=== PATIENT | male | born 1960 | race Two or more races ===

== ENCOUNTER 2024-11-10 04:44 | Inpatient (IN) | payer MEDICAID, SELFPAY ==
[2024-11-10] VITALS (27 sets, daily range): BP systolic 117–202; BP diastolic 17–149; PULSE 83–138; RESP 14–93; TEMP 36.1–36.9; O2SAT 83–99; BMI 20.9; BMI 20.7
--- NOTE | 2024-11-10 04:47 | EKG_ITS ---
[facility] Test Date: 2024-11-10 Pat Name: NITA LEONARD Department: Room: - Gender: Male Dicer Operator: : [id number] Requested By: Krystal Marion Order Number: [id number] Reading MD: Krystal Marion Measurements Intervals [place] Rate: 114 P: 60 [place]: 135 QRS: -53 QRSD: 128 T: 60 QT: 340 QTc: 469 Interpretive Statements SINUS TACHYCARDIA LEFT ATRIAL ENLARGEMENT [-0.15mV P WAVE IN V1/V2] RIGHT BUNDLE BRANCH BLOCK [120+ ms QRS DURATION, UPRIGHT V1, 40+ ms S IN I/aVL/V4/V5/V6] LEFT ANTERIOR FASCICULAR BLOCK [QRS AXIS <= -45, QR IN I, RS IN II] ANTEROSEPTAL MYOCARDIAL INFARCTION , OF INDETERMINATE AGE [40+ ms Q WAVE IN V1-V4] Compared to ECG 11/02/2021 17:13:16 Atrial abnormality now present Left anterior fascicular block now present Myocardial infarct finding now present Sinus rhythm no longer present Right-axis deviation no longer present /store/S0/[id number].pdf
--- NOTE | 2024-11-10 04:48 | EDNOTE_ITS ---
ED SOB =RME/HPI General Chief Complaint: Shortness of Breath/Dyspnea Stated Complaint: RESPIRATORY DISTRESS Time Seen by Provider: 11/10/24 04:46 Arrival date/time: 11/10/24 04:44 RME / HPI RME / HPI Narrative: Dr. Hernandez's Main ED Evaluation: 64yo male with a history of methamphetamine and alcohol use BIBA from home presents to the ED for a chief complaint of shortness of breath. Patient was seen by me immediately upon arrival. Per EMS, they found the patient walking outside of his apartment and appeared to be short of breath. They administered magnesium and 2 albuterol breathing treatments en route without much improvement. Full ROS is unobtainable due to the patient being short of breath and not answering any questions. Related Data Previous Rx's ?Medication ?Instructions ?Recorded pantoprazole 40 mg tablet,delayed 40 mg PO QDAY #30 tabs 10/22/19 release famotidine 20 mg tablet (Acid 20 mg PO QDAY #20 tabs 11/02/21 Controller) famotidine 20 mg tablet 20 mg PO QDAY #14 tabs 08/04/22 Allergies Allergy/AdvReac Type Severity Reaction Status Date / Time No Known Allergies Allergy Verified 08/04/22 15:11 Review of Systems Review of Systems ROS Unobtainable: other (unobtainable due to the patient being anxious & not answering any questions) Past Medical History Past Medical History NEUROLOGIC: Negative Neurological Disorders or Seizures CARDIAC: Negative Cardiac Disorders or Congestive Heart Failure RESPIRATORY: Negative Chronic Obstructive Pulmonary Disease (COPD) or Asthma GASTROINTESTINAL: Positive Gastrointestinal Disorders, Gastrointestinal Bleed, Esophageal Varices and Ulcer; Negative Hepatitis or Gastroesophageal Reflux Disease GENITOURINARY: Negative Renal Disease MUSCULOSKELETAL: Negative Musculoskeletal Disorders ENDOCRINE: Negative Endocrine Disorders, Diabetes Mellitus Type 1 or Diabetes Mellitus Type 2 HEMATOLOGIC: Negative Blood Disorders or Sickle Cell Disease OTHER HISTORY: Positive Blood Transfusions; Negative Blood Transfusion Reaction, Anesthesia Reactions, MRSA, VRSA, Vancomycin-Resistant Enterococci or Clostridium Difficile Social History SMOKING STATUS: Current some day smoker SECOND HAND EXPOSURE: No SUBSTANCE USE: does not use ED Exam General General appearance: Present alert, cachectic and other (very thin, is disshe veled) Head Head exam: Present atraumatic and normocephalic Eye Eye exam: Present normal appearance, PERRL and EOMI ENT ENT exam: Present normal exam, normal oropharynx and mucous membranes moist Neck Neck exam: Present normal inspection and full ROM Chest Chest inspection: Present symmetric chest wall rise and other (barrel-chested) Respiratory Respiratory exam: Present accessory muscle use and other (diffuse rhonchi); Absent wheezes Cardiovascular Cardiovascular exam: Present normal rhythm and tachycardia Abdominal Exam Abdominal exam: Present soft Extremities Exam Extremities exam: Present normal inspection and full ROM; Absent pedal edema Back Exam Back exam: Present normal inspection and full ROM Neurological Exam Neurological exam: Present alert and oriented X3 Psychiatric Psychiatric exam: Present anxious Skin Skin exam: Present warm and dry Course Course Course Narrative: CXR is ordered for determining the etiology of shortness of breath. 0517: Sepsis alert initiated. Orders made at this time are congruent with ED Adult Sepsis Order List. Re-evaluation is to be completed. No 30mL/kg IVF due to the patient being in CHF. Quality Measures Possible source: pulmonary Blood cultures ordered: yes Antibiotic ordered: Yes Pertinent labs: 11/10/24 04:50 Lactic Acid 2.5 H mMol/L (0.4-2.0) Procalcitonin Pending sepsis Orders Category Date Time Status Physician Coding Specialist STAT Care 11/10/24 04:47 Active Continuous Pulse Oximetry ONCE Care 11/10/24 04:47 Completed EKG (ED ONLY) *Do not use* NOW Care 11/10/24 04:47 Completed [place] Routine Care 11/10/24 05:08 Ordered Insert IV STAT Care 11/10/24 04:47 Active EKG (ED Only) Stat Exams 11/10/24 04:47 Draft XR chest 1V SEPSIS PROTOCOL Stat Exams 11/10/24 04:53 Taken B-Type Natriuretic Peptide Stat Lab 11/10/24 04:50 Received Blood Culture (Lab) Stat Lab 11/10/24 04:54 Ordered CBC Stat Lab 11/10/24 04:50 Completed Comprehensive Metabolic Panel Stat Lab 11/10/24 04:50 Received Lactic Acid [Lactate (Lactic Acid)] Stat Lab 11/10/24 04:50 Results Magnesium Stat Lab 11/10/24 04:50 Received Partial Thromboplastin Time Stat Lab 11/10/24 04:50 Completed Procalcitonin Stat Lab 11/10/24 04:50 Received Prothrombin Time with INR Stat Lab 11/10/24 04:50 Completed Troponin I Stat Lab 11/10/24 04:50 Received Albuterol/Ipratr Rt Krista [Duoneb Rt Krista] Med 11/10/24 04:48 Discontinued 10 ml INH X1 ONE Albuterol/Ipratr Rt Krista [Duoneb Rt Krista] Med 11/10/24 05:35 Discontinued 3 ml INH X1 ONE Aspirin Chew Med 11/10/24 04:47 Discontinued 324 mg PO X1 ONE Furosemide Inj [Lasix Inj] Med 11/10/24 04:48 Discontinued 40 mg IVP X1 ONE Furosemide Inj [Lasix Inj] Med 11/10/24 05:08 Discontinued 40 mg IVP X1 ONE Magnesium Sulf 50% Inj (gm) Med 11/10/24 04:54 Discontinued 1 gm IV X1 ONE Magnesium Sulf 50% Inj (gm) Med 11/10/24 04:50 Discontinued 1 gm IVP X1 ONE Magnesium Sulfate 1 gm Ivpb [Magnesium Sulfate Ivpb] Med 11/10/24 04:54 Discontinued 100 ml IV .STK-MED MethylPREDNISolone.* [SoluMEDROL Inj] Med 11/10/24 04:48 Discontinued 125 mg IVP X1 ONE Morphine Inj Med 11/10/24 04:51 Discontinued 2 mg IVP X1 ONE Nitroglycerin Oint 2% [Nitro-paste Oint 2%] Med 11/10/24 04:55 Discontinued 1 inch TOP .STK-MED ONE Nitroglycerin Oint 2% [Nitro-paste Oint 2%] Med 11/10/24 04:58 Discontinued 1 inch TOP X1 ONE Nitroglycerin [Nitrostat 1/150] Med 11/10/24 04:47 Discontinued 0.4 mg SL Q5M PRN Ondansetron Inj [Zofran Inj] Med 11/10/24 04:47 Active 4 mg IV Q1HR PRN Piper/Tazo Inj [Zosyn Inj] 3.375 gm Med 11/10/24 05:33 Pending Sodium Chloride 0.9% (P) [Ns 0.9% (P)] 50 ml IV Q6HR Piper/Tazo Inj [Zosyn Inj] 3.375 gm Med 11/10/24 05:45 Active Sodium Chloride 0.9% (P) [Ns 0.9% (P)] 50 ml IV X1 BiPAP / CPAP NOW RT 11/10/24 04:58 Active Oxygen Delivery NOW RT 11/10/24 04:47 Active Vital Signs Vital signs: Vital Signs Pulse Rate 118 H 11/10/24 04:45 Respiratory Rate 29 H 11/10/24 04:45 Blood Pressure 183/148 H 11/10/24 04:45 Pulse Oximetry (%) 97 11/10/24 04:45 Procedures -ED Smoking Cessation Time Spent Discussing Smoking Cessation w/Patient (min): 5 Patient Acknowledges Need for Cessation: Yes Additional Comments: The patient was counseled as to the multiple risks to their health from continued use of tobacco products. It was explained that continuing to smoke may lead to multiple short and terminal gauger supervisor negative health consequences, including but not limited to mouth/esophageal/lung cancer, COPD, and heart disease. The patient states she/he understands these risks and also understands the options and resources available to them to help them stop smoking. Nicotine replacement therapy, local hotlines, and local resources were discussed as viable options for helping them stop their tobacco use. The total time spent counseling the patient regarding tobacco cessation was 5 minutes. Shortness of Breath / Dyspnea Patient data External records reviewed:: [facility] previous records (Per chart review, patient was seen here on 11/20/22 for heartburn.) Clinical information provided by:: EMS Social determinants that could affect healthcare access:: substance use (history of methamphetamine and alcohol use per EMR review; daily tobacco smoker) Patient has the following chronic illnesses:: none How is presenting disease/condition affected by chronic disease/condition?: no chronic disease Evaluation data The following diagnostics were reviewed and interpreted by me:: lab results, radiology exam(s) and EKG tracing(s) Lab and/or radiology exams considered but not ordered:: none Interpretation Summary: WBC count is elevated at 12.2, Lactate is elevated at 2.5, PTT is normal, PT and INR are normal, other labs are still pending. CXR shows CHF, R>L pleural effusions, cardiomegaly, according to my interpretation. EKG done at 0511, sinus tachycardia, rate of 114, RBBB, no acute ST or T wave changes, no STEMI, according to my interpretation. Medications / Prescriptions Medications or Prescriptions considered but not ordered:: none Medication administrations:: Medication Administration History Piperacillin Sod/Tazobactam (Sod 3.375 gm/ Sodium Chloride) 50 mls @ 100 mls/hr IV Q6HR TAYLOR Stop: 11/17/24 05:32 Piperacillin Sod/Tazobactam (Sod 3.375 gm/ Sodium Chloride) 50 mls @ 100 mls/hr IV X1 ONE Stop: 11/10/24 06:14 Ondansetron HCl (Ondansetron Inj 2 Mg/Ml Inj 2 Ml) 4 mg IV Q1HR PRN PRN Reason: PERSISTENT NAUSEA OR VOMITING Discontinued Medications Albuterol/Ipratropium (Albuterol/Ipratropium (Duoneb) Rt Krista 3 Ml Nebu) 10 ml INH X1 ONE Stop: 11/10/24 04:49 Albuterol/Ipratropium (Albuterol/Ipratropium (Duoneb) Rt Krista 3 Ml Nebu) 3 ml INH X1 ONE Stop: 11/10/24 05:36 Aspirin (Aspirin 81 Mg Chew) 324 mg PO X1 ONE Stop: 11/10/24 04:48 Last Admin: 11/10/24 04:58 Dose: Not Given Documented By: TC Non-Admin Reason: Contraindicated Furosemide (Furosemide Inj 10 Mg/Ml 4ml Vial) 40 mg IVP X1 ONE Stop: 11/10/24 04:49 Last Admin: 11/10/24 04:57 Dose: 40 mg Documented By: MARIA DE JESUS Furosemide (Furosemide Inj 10 Mg/Ml 4ml Vial) 40 mg IVP X1 ONE Stop: 11/10/24 05:09 Last Admin: 11/10/24 05:33 Dose: 40 mg Documented By: MARIA DE JESUS Magnesium Sulfate/Dextrose (Magnesium Sulfate Ivpb) Confirm Administered Dose 100 mls @ ud IV .STK-MED ONE Stop: 11/10/24 04:55 Last Admin: 11/10/24 05:04 Dose: Not Given Documented By: TC Non-Admin Reason: Duplicate Medication on eMAR Magnesium Sulfate (Magnesium Sulf 0.5 Gm/Ml Vial 2 Ml) 1 gm IVP X1 ONE Stop: 11/10/24 04:51 Last Admin: 11/10/24 05:04 Dose: Not Given Documented By: TC Non-Admin Reason: Discontinued Magnesium Sulfate (Magnesium Sulf 0.5 Gm/Ml Vial 2 Ml) 1 gm IV X1 ONE Stop: 11/10/24 04:55 Last Admin: 11/10/24 05:02 Dose: 1 gm Documented By: TC Methylprednisolone Sodium Succinate (Methylprednisolone Sod Succ 62.5 Mg/Ml 2ml Vial) 125 mg IVP X1 ONE Stop: 11/10/24 04:49 Last Admin: 11/10/24 04:57 Dose: 125 mg Documented By: TC Morphine Sulfate (Morphine Sulf Inj 10 Mg/Ml Vial) 2 mg IVP X1 ONE Stop: 11/10/24 04:52 Last Admin: 11/10/24 04:57 Dose: 2 mg Documented By: TC Nitroglycerin (Nitroglycerin 0.4 Mg Subl Btl #25) 0.4 mg SL Q5M PRN PRN Reason: CHEST PAIN Nitroglycerin (Nitroglycerin Oint 2% 1 Inch Packet) 1 inch TOP X1 ONE Stop: 11/10/24 04:59 Last Admin: 11/10/24 05:02 Dose: 1 inch Documented By: TC Nitroglycerin (Nitroglycerin Oint 2% 1 Inch Packet) Confirm Administered Dose 1 inch TOP .STK-MED ONE Stop: 11/10/24 04:56 Last Admin: 11/10/24 05:05 Dose: Not Given Documented By: TC Non-Admin Reason: Duplicate Medication on eMAR see above Consultations Consultation(s) initiated? (list below): No Diagnosis Shortness of Breath Differential Diagnosis: congestive heart failure, community acquired pneumonia, pulmonary embolism and other (drug use) Most likely diagnosis given after review of the tests above:: see below Admission Indicated Admission indicated?: not indicated Explain why admission is indicated or not indicated:: work-up pending at signout. Admission Request Was there a request for admission?: No Disposition Plan Disposition Plan: other (specify) (Signed out to Dr. Donahue at 0600 pending labs.) Critical Care Time Critical Care Time Critical Care Time: Yes Total Critical Care Time (min.): 45 Attestation: The high probability of sudden, clinically significant deterioration in the patient?s condition required the highest level of my preparedness to intervene urgently. The services I provided to this patient were to treat and/or prevent clinically significant deterioration. Services included the following: chart data review, reviewing nursing notes and/or old charts, documentation time, technical healthcare consultant collaboration regarding findings and treatment options, medication orders and management, direct patient care, vital sign assessments and ordering, interpreting and reviewing diagnostic studies and lab tests. Aggregate critical care time includes only time during which I was engaged in work directly related to the patient?s care, as described above, whether at bedside or elsewhere in the Emergency Department. It did not include time spent performing other reported procedures or the services of residents, students, nurses or physician assistants. Discharge Plan Plan Disposition Comment: Stable at signout Prescriptions/Referrals Prescriptions/Med Rec: No Action pantoprazole 40 mg Tablet,Delayed Release (Dr/Ec) 40 mg PO QDAY Qty: 30 0RF famotidine [Acid Controller] 20 mg tablet 20 mg PO QDAY Qty: 20 0RF famotidine 20 mg tablet 20 mg PO QDAY Qty: 14 0RF Problem List Clinical Impression: CHF (congestive heart failure) Patient/Caregiver Discharge Instructions Print Language: Palestinian
--- NOTE | 2024-11-10 04:53 | XR_ITS ---
Examination: AP chest single view Technique: AP portable upright chest single view Exam date and time: November 10, 2024 at 0459 hrs. Comparison July 26, 2015 Indications: Sepsis chest pain today. Findings: Prominent CHF Enlarged cardiac contour with prominent vascular congestion and perihilar edema Consider superimposed pneumonia throughout both lungs, clinical correlation advised Prominent osteopenia Impression: Prominent CHF Consider superimposed bilateral pneumonia
[2024-11-10] MEDS: MORPHINE SULF INJ 10 MG/ML VIAL 2 MG IVP (04:57)
[2024-11-10] MEDS: MethylPREDNISolone SOD SUCC 62.5 MG/ML 2ML VIAL 125 MG IVP (04:57)
[2024-11-10] MEDS: FUROSEMIDE INJ 10 MG/ML 4ML VIAL 40 MG IVP ×3 (04:57→18:15)
[2024-11-10] MEDS: NITROGLYCERIN OINT 2% 1 INCH PACKET TOP (05:02)
[2024-11-10] MEDS: MAGNESIUM SULFATE 0.5 GM/ML 1 GM IV (05:02)
[2024-11-10 05:05] LABS: Lactate (Lactic Acid) 2.5 mMol/L (0.4-2.0)
[2024-11-10 05:09] LABS: Basophils # (Auto) 0.1 Thou/mm3 (0.0-0.2); Basophils % (Auto) 1 % (0-2.5); Eosinophils # (Auto) 0.3 Thou/mm3 (0.0-0.5); Eosinophils % (Auto) 3 % (0-10); Hematocrit 38.2 % (41.0-53.0); Hemoglobin 11.9 g/dL (13.5-16.0); Immature Granulocytes % (Auto) 0 % (0-0); Immature Granulocytes Auto 0.04 Thou/mm3 (0.00-0.00); Lymphocytes # (Auto) 2.9 Thou/mm3 (1.0-4.8); Lymphocytes % (Auto) 23 % (10-50); Mean Corpuscular HGB Conc 31.2 g/dl (31.0-37.0); Mean Corpuscular Hemoglobin 26.6 pg (25.0-35.0); Mean Corpuscular Volume 86 fL (80-100); Monocytes # (Auto) 0.9 Thou/mm3 (0.0-0.8); Monocytes % (Auto) 7 % (0-12); Neutrophils # (Auto) 8.3 Thou/mm3 (1.8-7.7); Neutrophils % (Auto) 66 % (37-80); Nucleated Red Blood Cell % 0 /100 WBC (0); Platelet Count 287 Thou/mm3 (140-440); RDW Standard Deviation 55.5 fL (35.1-43.9); Red Blood Count 4.47 Miln/mm3 (4.50-5.90); White Blood Count 12.6 Thou/mm3 (3.8-10.6)
[2024-11-10 05:27] LABS: Partial Thromboplastin Time 23.3 Seconds (22.0-36.0); Prothrombin Time 10.8 Seconds (9.0-12.2)
[2024-11-10 05:43] LABS: Alanine Aminotransferase 21 U/L (10-49); Albumin, Serum 4.2 gm/dL (3.4-4.8); Albumin/Globulin Ratio 1.5 (1.2-2.2); Alkaline Phosphatase 159 U/L (46-116); Anion Gap 11 (7-16); Aspartate Amino Transferase 26 U/L (0-34); B-Type Natriuretic Peptide 1132 pg/mL (0-100); BUN/Creatinine Ratio 20 Ratio (12-20); Bilirubin,Total 0.4 mg/dL (0.3-1.2); Blood Urea Nitrogen 20 mg/dL (9-23); Calcium 8.9 mg/dL (8.3-10.6); Calcium (Corrected) 8.9 mg/dL (8.5-10.1); Carbon Dioxide 24.8 mMol/L (20.0-31.0); Chloride 108 mMol/L (98-107); Estimated Creatinine Clearance 62.2 mL/min (>60); Globulin 2.8 gm/dL (2.3-3.5); Glucose 163 mg/dL (74-106); Magnesium 2.5 mg/dL (1.6-2.6); Osmolality,Calculated 293 (275-295); Potassium 3.7 mMol/L (3.4-5.1); Procalcitonin 0.12 ng/ml (0.0-0.49); Sodium 144 mMol/L (136-145); eGFR > 60 See Note
[2024-11-10 05:47] LABS: Troponin I 0.657 ng/mL (0.0-0.045)
--- NOTE | 2024-11-10 05:56 | EDNOTE_ITS ---
Emergency Room Addendum <Malu Serna - Last Filed: 11/10/24 11:48> Addendum Narrative: 0600: Care assumed from Dr. Hernandez, the previous shift emergency physician. Past medical, surgical, social and family history reviewed. Vitals and home medications reviewed. I will assume the care of the patient at this time, pending labs and final disposition. Please refer to the emergency department record for history and examination from initial visit.? Called to bedside. Patient O2 saturation 80s, appears in respiratory distress, agitated, pulling at mask. Blood pressure greatly elevated. Bipap in place. Bipap mask changed. Morphine ordered. Patient had already received Lasix, NTG SL, and nitro paste. On reexamination symptoms improved. Saturating well. Blood pressure much improved. 0825: Discussed test HPI, PMHx, lab, radiology results and/or management with Dr. Simental. Will consult an admission to the hospitalist. 0830: Discussed test HPI, PMHx, lab, radiology results and/or management with hospitalist. Will admit for further evaluation and management. Accepts patient for admission. CRITICAL CARE: TIME: 40 minutes. The high probability of sudden, clinically significant deterioration in the patient?s condition required the highest level of my preparedness to intervene urgently. The services I provided to this patient were to treat and/or prevent clinically significant deterioration. Services included the following: chart data review, reviewing nursing notes and/or old charts, documentation time, splunk consultant collaboration regarding findings and treatment options, medication orders and management, direct patient care, vital sign assessments and ordering, interpreting and reviewing diagnostic studies and lab tests. Aggregate critical care time includes only time during which I was engaged in work directly related to the patient?s care, as described above, whether at bedside or elsewhere in the Emergency Department. It did not include time spent performing other reported procedures or the services of residents, students, nurses or physician assistants. <Kelsea Donahue MD - Last Filed: 11/10/24 08:36> Addendum Narrative: 0600: Care assumed from Dr. Hernandez, the previous shift emergency physician. Past medical, surgical, social and family history reviewed. Vitals and home medications reviewed. I will assume the care of the patient at this time, pending labs and final disposition. Please refer to the emergency department record for history and examination from initial visit.? Called to bedside. Patient O2 saturation 80s, appears in respiratory distress, agitated, pulling at mask. Blood pressure greatly elevated. Bipap in place. Bipap mask changed. Morphine ordered. Patient had already received Lasix, NTG SL, and nitro paste. On reexamination symptoms improved. Saturating well. Blood pressure much improved. D/W Dr. Simental for consult. Critical care time 40 minutes D/W hospitalist team for admission
[2024-11-10] MEDS: NITROGLYCERIN 0.4 MG SUBL BTL #25 SL ×2 (06:00→06:40)
[2024-11-10] MEDS: MORPHINE SULF INJ 10 MG/ML VIAL 4 MG IVP (06:12)
[2024-11-10] MEDS: PIPER/TAZO 3.375 GM 50 ML IV (06:13)
[2024-11-10] MEDS: ALBUTEROL/IPRATROPIUM (Duoneb) RT SOL 3 ML NEBU INH (06:14)
[2024-11-10 08:02] LABS: Reflex Lactate? Y
[2024-11-10 08:45] LABS: Lactic Acid, 3 HR 1.4 mMol/L (0.4-2.0)
[2024-11-10 08:46] LABS: Collection Type, Urine Catheter; Squamous Epithelial Cell,Urine 0 /hpf (0-5)
[2024-11-10 08:51] LABS: Bilirubin,Urine Negative (Negative); Blood,Urine Trace (Negative); Clarity,Urine Clear (Clear/Hazy); Color,Urine Colorless (Lt Yel-Yel); Culture Indicated,Urine Not Indicated; Glucose, Urine Negative (Negative); Hyaline Casts,Urine < 1 /hpf (0-1); Ketones,Urine Negative (Negative); Leukocyte Esterase,Urine Negative (Negative); Nitrite,Urine Negative (Negative); Protein,Urine Negative (Neg - Trace); RBC,Urine 4 /hpf (0-3); Specific Gravity,Urine 1.008 (1.001-1.035); Urobilinogen,Urine Negative mg/dL (0.0-1.0); WBC,Urine 1 /hpf (0-5)
[2024-11-10 08:57] LABS: Amphetamine/Methamp Scrn,U Positive (Negative); Barbiturate Screen,Urine Negative (Negative); Benzodiazepines Screen,Urine Negative (Negative); Benzoylecgonine Screen, Ur Negative (Negative); Fentanyl Screen,Urine Negative (Negative); Opiate Screen,Urine Positive (Negative); THC Screen,Urine Negative (Negative)
--- NOTE | 2024-11-10 09:13 | ECHO_ITS ---
Transthoracic Echo Report Ht (in): 66 Wt (lb): 130 Exam Location: ER Status: Inpatient Motor Tester: Kathy Baker Indications: Procedure Performed: BP: 129 / 82 HR: 87 Rhythm: Sinus Technical Quality: Fair MEASUREMENTS (Male / Female) Normal Values 2D ECHO LV Diastolic Diameter PLAX 4.4 cm 4.2 - 5.9 / 3.9 - 5.3 cm LV Systolic Diameter PLAX 3.3 cm IVS Diastolic Thickness 1.2 cm 0.6 - 1.0 / 0.6 - 0.9 cm LVPW Diastolic Thickness 1.1 cm 0.6 - 1.0 / 0.6 - 0.9 cm LV Relative Wall Thickness 0.5 LVOT Diameter 1.9 cm LV Ejection Fraction MOD 4C 45.6 % LV Cardiac Index MOD 4C 2517.1 cm?/min?m? LV Ejection Fraction 4C AL 46.1 % LV Cardiac Index 4C AL 2657.1 cm?/min?m? LA Volume Index 28.1 cm?/m? 16 - 28 cm?/m? Ascending Aorta Diameter 3.2 cm M-MODE Aortic Root Diameter MM 2.6 cm LA Systolic Diameter MM 4.6 cm LA Ao Ratio MM 1.8 AV Cusp Separation MM 1.8 cm DOPPLER AV Peak Velocity 170.0 cm/s AV Peak Gradient 11.6 mmHg AV Mean Gradient 6.0 mmHg AV Velocity Time Integral 30.7 cm AI Peak Velocity 456.0 cm/s AI Peak Gradient 83.2 mmHg AI Pressure Half Time 301.0 ms LVOT Peak Velocity 103.0 cm/s LVOT Peak Gradient 4.2 mmHg LVOT Velocity Time Integral 18.7 cm LVOT Cardiac Index 2786.2 cm?/min?m? AV Area Cont Eq vti 1.7 cm? AV Area Cont Eq pk 1.7 cm? MV Peak Velocity 136.0 cm/s MV Peak Gradient 7.4 mmHg MV Mean Velocity 83.0 cm/s MV Mean Gradient 3.0 mmHg MV Area PHT 4.3 cm? MR Peak Velocity 468.0 cm/s MR Peak Gradient 87.6 mmHg Mitral E Point Velocity 104.0 cm/s Mitral A Point Velocity 104.0 cm/s Mitral E to A Ratio 1.0 LV E' Lateral Velocity 6.0 cm/s Mitral E to LV E' Lateral Ratio 17.4 LV E' Septal Velocity 5.8 cm/s Mitral E to LV E' Septal Ratio 18.0 TR Peak Velocity 226.0 cm/s TR Peak Gradient 20.4 mmHg FINDINGS Left Ventricle Normal left ventricular size.mild dysfunction. Hypokinesis apical and mid septal wall. [place] mid anterior wall. The ejection fraction is visually estimated at 40-45%. Right Ventricle The right ventricle is normal size. Mild systolic dysfunction. The estimated right ventricular systo lic pressure, 25mmHg. RAP 5. Left Atrium The left atrium is normal by two-dimensional, color flow and Doppler imaging with no structural abnormalities, no thrombus formation present. Right Atrium The right atrium is normal by two-dimensional imaging, color flow and Doppler imaging with no struct ural abnormalities, no thrombus formation present. Atrial Septum The interatrial septum appears normal with no evidence of a shunt. Aorta The aorta is normal by two-dimensional, color flow and Doppler interrogation. Mitral Valve The mitral valve is normal by two-dimensional, color flow and Doppler interrogation. There is mild t o moderate mitral valve regurgitation. Aortic Valve The aortic valve is trileaflet. Mild sclerosis without stenosis. There is moderate aortic valve regu rgitation. Tricuspid Valve The tricuspid valve is normal by two-dimensional, color flow and Doppler interrogation. There is mil d tricuspid valve regurgitation. Pulmonic Valve There is moderate pulmonic valve regurgitation. Vessels The pulmonary artery appears normal. The inferior vena cava pulmonary and hepatic veins appear joanna l. Pericardium The pericardium is normal by two-dimensional imaging. There is a moderate to severe circumferential pericardial effusion. There is RA collapse. There is TR respiratation variation. indication pre ca rdiac tamponade. Other Findings pleural effusion present. CONCLUSIONS There is a moderate to severe pericardial effusion mostly posterior . . Normal LV size. Mild systolic dysfunction. Hypokinesis apical and mid septal wall. [place] mid ant erior wall. Estimated EF 40-45% Normal RV size. Mild systolic dysfunction. Mild to moderate MR. Moderate AI, PI.Mild TR. Mild AV sclerosis without stenosis. Pleural effusion present. Tori Simental (Electronically Signed) Final Date: 10 November 2024 16:40
[2024-11-10 09:58] LABS: Troponin I 0.712 ng/mL (0.0-0.045)
--- NOTE | 2024-11-10 09:58 | ESHP_ITS ---
<Statement entered by Yvette Scott MD - 11/14/24 12:19> I reviewed above note and agree with findings and plans. I have also personally examined the patient with medicine team and went over assessment and plan with medical team including regulatory affairs intern and resident physician. Documentation for date of: 11/10/24 HPI History of Present Illness Chief complaint: SOb and LE swelling History of present illness: 64-year-old male with past medical history of gastritis, alcohol abuse, meth use, and questionable heart failure and CAD history was admitted to the hospital on 11/10/2024 after coming to the ED with complaints of shortness of breath and lower extremity swelling. Patient is a very poor historian. Patient stated that 2 days ago he started having shortness of breath accompanied with lower extremity swelling. He stated he has not had these symptoms before, but that he had to see a biodiesel division manager in [place] for a heart surgery as per patient, but that he never went. Patient stated that he does not take any daily medication and he was never on a water pill. He states that he does not follow-up with any biodiesel division manager or with any other physician at this time. He denies any chest pain, abdominal pain, nausea, vomiting, or blood in the stools. ED course: Initially patient came in hypertensive, tachypneic, tachycardic, and afebrile. Initial labs were relevant for leukocytosis (12.6), anemia (11.9), lactic acidosis, elevated troponins (0.657 and up trended to 0.712), elevated BNP 1132, and UTI was positive for meth. Initial imaging included chest x-ray which showed some pneumonia with heart failure pattern as well. EKG showed sinus tachycardia with right bundle branch block, but no acute ST changes. Patient was placed on BiPAP. PMH: As above Social Hx: Admits to meth use, admits to smoking 5 to 6 cigarettes/day, denies any alcohol in the past 2 years Review of Systems Review of Systems Narrative Review of Systems: Constitutional: Denies sweats, Denies weight loss/gain, Denies fever, Denies chills. HEENT: Denies hearing loss, Denies ear pain, Denies postnasal drip, Denies double vision, Denies blurry vision. Respiratory: Admits shortness of breath, Denies cough, Denies wheezing. Cardiovascular: Denies chest pain, Denies palpitations, Denies sudden loss of consciousness. GI: Denies blood in stool, Denies constipation, Denies abdominal pain, Denies difficulty swallowing, Denies nausea or vomit. : Denies urinary incontinence, Denies pain while urinating, Denies increased urinary frequency. MSK: Denies joint pain, Denies joint swelling, Denies numbness, Admits lower extremity swelling. Skin: Denies rash, Denies itching, Denies easy bruising. Neuro: Denies headaches, Denies dizziness, Denies seizures. Past Medical History Past Medical History NEUROLOGIC: Negative Neurological Disorders or Seizures CARDIAC: Negative Cardiac Disorders or Congestive Heart Failure RESPIRATORY: Negative Chronic Obstructive Pulmonary Disease (COPD) or Asthma GASTROINTESTINAL: Positive Gastrointestinal Disorders, Gastrointestinal Bleed, Esophageal Varices and Ulcer; Negative Hepatitis or Gastroesophageal Reflux Disease GENITOURINARY: Negative Renal Disease MUSCULOSKELETAL: Negative Musculoskeletal Disorders ENDOCRINE: Negative Endocrine Disorders, Diabetes Mellitus Type 1 or Diabetes Mellitus Type 2 HEMATOLOGIC: Negative Blood Disorders or Sickle Cell Disease OTHER HISTORY: Positive Blood Transfusions; Negative Blood Transfusion Reaction, Anesthesia Reactions, MRSA, VRSA, Vancomycin-Resistant Enterococci or Clostridium Difficile Social History SMOKING STATUS: Current some day smoker SECOND HAND EXPOSURE: No SUBSTANCE USE: does not use Exam Vital Signs Temp Pulse Resp BP Pulse Ox O2 Del Method FiO2 97.8 F 94 18 117/95 H 97 BiPAP 90 11/10/24 07:35 11/10/24 07:35 11/10/24 07:35 11/10/24 07:35 11/10/24 07:35 11/10/24 07:35 11/10/24 07:35 Narrative Exam General: A/O x3, in mild respiratory distress, disheveled Eyes: PERRL, EOMI. Anicteric, vision grossly intact. Ears: No ear pain, no ear discharge, Hearing grossly intact. Nose: No nasal discharge. Mouth/Throat: Dry mucous membranes, poor dentation, no redness, no lesions. Neck: Neck supple, non-tender, no cervical lymphadenopathy. Lungs: Crackles HUGH, No accessory muscle use. Cardio: Normal S1/S2, regular rhythm, no murmurs, no JVD Abdomen: Soft, non-tender, no palpable masses, peristalsis present, no guarding or rebound. Extremities: Symmetrical, no significant deformities, 2+ peripheral edema , non-tender, peripheral pulses presents. Skin: No rashes, no lesions, warm to touch. psoriatic lesion beneath umbilicus Neuro: No focal neurological deficits. motor and sensory intact Psych: Cooperative, appropriate mood and effect. Results: Labs 11/10/24 04:50 11/10/24 04:50 Labs: Short CBC 11/10/24 Range/Units 04:50 WBC 12.6 H (3.8-10.6) Thou/mm3 Hgb 11.9 L (13.5-16.0) g/dL Hct 38.2 L (41.0-53.0) % Plt Count 287 (140-440) Thou/mm3 BMP 11/10/24 04:50 Sodium 144 Potassium 3.7 Chloride 108 H Carbon Dioxide 24.8 BUN 20 Creatinine 1.0 Glucose 163 H Calcium 8.9 Cardiac Enzymes 11/10/24 11/10/24 Range/Units 04:50 08:32 Troponin I 0.657 H* 0.712 H* (0.0-0.045) ng/mL Liver Function 11/10/24 Range/Units 04:50 Total Bilirubin 0.4 (0.3-1.2) mg/dL AST 26 (0-34) U/L ALT 21 (10-49) U/L Alkaline Phosphatase 159 H (46-116) U/L Albumin 4.2 (3.4-4.8) gm/dL Urine 11/10/24 Range/Units 08:34 Urine Color Colorless A (Lt Yel-Yel) Urine Clarity Clear (Clear/Hazy) Urine pH 6.0 (5.0-7.0) Ur Specific [place] 1.008 (1.001-1.035) Urine Protein Negative (Neg - Trace) Urine Glucose (UA) Negative (Negative) Quality Measures Quality Measures sepsis Current suspected stage: sepsis Possible source: pulmonary Blood cultures ordered: yes Antibiotic ordered: Yes Medications Home Medications and Allergies Home Medications ?Medication ?Instructions ?Recorded ?Confirmed ?Type No Known Home Medications 11/10/24 11/10/24 History Allergies Allergy/AdvReac Type Severity Reaction Status Date / Time No Known Allergies Allergy Verified 08/04/22 15:11 Visit Medications Acetaminophen (Acetaminophen 325 Mg Tablet) 650 mg PO Q6H PRN PRN Reason: pain 1-3 and Fever >100.4 Stop: 12/10/24 09:07 Hydrocodone Bitart/Acetaminophen (Hydrocodone/Apap 5/325 Tablet) 1 tab PO Q4HR PRN PRN Reason: PAIN SCALE 4-10(Mod-Sev Stop: 11/15/24 09:07 Furosemide (Furosemide Inj 10 Mg/Ml 4ml Vial) 40 mg IVP BIDD [facility] Stop: 12/10/24 17:59 Heparin Sodium (Porcine) (Heparin Sod Inj 5000 Unit/Ml Vial) 5,000 unit SC Q8HR [facility] Stop: 11/24/24 13:59 Piperacillin Sod/Tazobactam Sod 3.375 gm/ Piperacillin/Tazobactam/Dextrose 50 mls @ 12.5 mls/hr IV Q8HR [facility] Stop: 11/17/24 13:59 Ondansetron HCl (Ondansetron Inj 2 Mg/Ml Inj 2 Ml) 4 mg IV Q1HR PRN PRN Reason: PERSISTENT NAUSEA OR VOMITING Ondansetron HCl (Ondansetron Inj 2 Mg/Ml Inj 2 Ml) 4 mg IV Q6H PRN; Protocol PRN Reason: NAUSEA OR VOMITING Stop: 12/10/24 09:07 Pantoprazole Sodium (Pantoprazole Inj 40 Mg Vial) 40 mg IVP QDAY [facility] Stop: 12/10/24 09:14 Discontinued Medications Albuterol/Ipratropium (Albuterol/Ipratropium (Duoneb) Rt Krista 3 Ml Nebu) 10 ml INH X1 ONE Stop: 11/10/24 04:49 Last Admin: 11/10/24 06:21 Dose: Not Given Albuterol/Ipratropium (Albuterol/Ipratropium (Duoneb) Rt Krista 3 Ml Nebu) 3 ml INH X1 ONE Stop: 11/10/24 05:36 Last Admin: 11/10/24 06:14 Dose: 3 ml Aspirin (Aspirin 81 Mg Chew) 324 mg PO X1 ONE Stop: 11/10/24 04:48 Last Admin: 11/10/24 04:58 Dose: Not Given Furosemide (Furosemide Inj 10 Mg/Ml 4ml Vial) 40 mg IVP X1 ONE Stop: 11/10/24 04:49 Last Admin: 11/10/24 04:57 Dose: 40 mg Furosemide (Furosemide Inj 10 Mg/Ml 4ml Vial) 40 mg IVP X1 ONE Stop: 11/10/24 05:09 Last Admin: 11/10/24 05:33 Dose: 40 mg Piperacillin Sod/Tazobactam (Sod 3.375 gm/ Sodium Chloride) 50 mls @ 100 mls/hr IV X1 ONE Stop: 11/10/24 06:14 Last Admin: 11/10/24 06:23 Dose: Not Given Piperacillin/Tazobactam/Dextrose (Zosyn) 50 mls @ 100 mls/hr IV X1 ONE Stop: 11/10/24 06:14 Last Infusion: 11/10/24 06:42 Dose: Infused Magnesium Sulfate (Magnesium Sulf 0.5 Gm/Ml Vial 2 Ml) 1 gm IVP X1 ONE Stop: 11/10/24 04:51 Last Admin: 11/10/24 05:04 Dose: Not Given Magnesium Sulfate (Magnesium Sulf 0.5 Gm/Ml Vial 2 Ml) 1 gm IV X1 ONE Stop: 11/10/24 04:55 Last Admin: 11/10/24 05:02 Dose: 1 gm Methylprednisolone Sodium Succinate (Methylprednisolone Sod Succ 62.5 Mg/Ml 2ml Vial) 125 mg IVP X1 ONE Stop: 11/10/24 04:49 Last Admin: 11/10/24 04:57 Dose: 125 mg Morphine Sulfate (Morphine Sulf Inj 10 Mg/Ml Vial) 2 mg IVP X1 ONE Stop: 11/10/24 04:52 Last Admin: 11/10/24 04:57 Dose: 2 mg Morphine Sulfate (Morphine Sulf Inj 10 Mg/Ml Vial) 4 mg IVP X1 ONE Stop: 11/10/24 06:09 Last Admin: 11/10/24 06:12 Dose: 4 mg Nitroglycerin (Nitroglycerin 0.4 Mg Subl Btl #25) 0.4 mg SL Q5M PRN PRN Reason: CHEST PAIN Last Admin: 11/10/24 06:40 Dose: 0.4 mg Nitroglycerin (Nitroglycerin Oint 2% 1 Inch Packet) 1 inch TOP X1 ONE Stop: 11/10/24 04:59 Last Admin: 11/10/24 05:02 Dose: 1 inch Sodium Chloride (Sodium Chloride Rt 10% 15 Ml Nebu) 5 ml INH X1 ONE Stop: 11/10/24 09:15 Assessment & Plan Plan 64-year-old male with past medical history of gastritis, alcohol abuse, meth use, and questionable heart failure and CAD history was admitted to the hospital on 11/10/2024 for acute hypoxic respiratory failure likely secondary to acute decompensated heart failure, new onset versus exacerbation and sepsis likely secondary to community-acquired pneumonia. #Acute hypoxic respiratory failure likely secondary to #Acute decompensated heart failure exacerbation, new onset versus exacerbation ?Patient came in with complaints of shortness of breath and bilateral lower extremity edema ? DDx acute decompensated heart failure exacerbation likely in the setting of amphetamine use versus medical noncompliance ? BNP 1132 ? Chest x-ray showed CHF pattern ?No echo on file ?Patient had a balance of negative a 50 mL. Plan: ? Lasix 40 twice daily ? Fluid restrictions 1500 mL ? Daily weights ?strict KAMERON's ?O2 administration as needed ?Echo ordered ? Cardiology consulted, appreciate recommendations #Sepsis likely secondary to #Community-acquired pneumonia #Lactic acidosis ?Patient came in with shortness of breath as well as met SIRS criteria 3 out of 4 with tachypnea, tachycardia, and leukocytosis ?Patient had elevated troponins which can indicate endorgan damage ?Lactic acid 2.5 and down trended ?Patient chest x-ray showed bilateral pneumonia ?Patient's MAP has been above 65 with times in the cane that there is no shock. Plan: ? Start azithromycin and Rocephin [11/10/2024-] ? Blood and sputum cultures ordered ?Held fluids in the setting that patient appears to be fluid overloaded and in heart failure exacerbation ? Will continue to monitor #NSTEMI likely type II ? Patient denies any chest pain ? Troponins elevated at 0.657 on admission and up trended to 0.712 ? EKG did not show any ST changes ? Mostly in the setting of acute heart failure exacerbation and pneumonia -No heparin drip for now as per cardiology Plan: ? Will continue to monitor ? Cardiology consulted, appreciate commendations #Normocytic normochromic anemia ? Patient's hemoglobin was 11.9 on admission ? Patient's baseline hemoglobin is around 14.9 that was on 2021 ? No acute signs of bleeding Plan: ? Will continue to monitor #Polysubstance abuse #Alcohol abuse #Meth use ?Patient's U tox was positive for meth and he has a history of alcohol abuse Plan: ? Referred to mental health social worker #Hx of gastritis ? Started patient on pantoprazole Disposition: Patient admitted to telemetry for HF exacerbation and CAP and NSTEMI. Diet: NPO GI prophylaxis: protonix DVT prophylaxis: Heparin sc Code:Full code Case disclosed with Attending Dr. Scott and My senior Dr. Morgan PGY2. Sin Stylespo PGY1 Senior Resident Attestation: Mr. Alcantara is a 64 YO M with PMH multi-substance abuse disorder, gastritis and possible CHF presented with SOB and was found to have AHRF 2/2 Sepsis 2/2 community acquired PNA with end organ failure as NSTEMI type 2. He was stared on BiPAP in the ED and given 80mg IV lasix x1. He was started on ceftriaxone and azithromycin for CAP and lasix 40mg IV BID for acute exacerbation on new onset CHF. TTE revealed LVEF 40-45%, and his trops downtrended. He did not receive 30cc/kg of bolus IV fluid as he was in CHF exacerbation. We will f/u on his cultures and continue to monitor INS/Out with fluid restriction to 1500cc. We will slowly start him on GDMT as tolerated from tomorrow. Pending further reccs from biodiesel division manager Dr. Simental. I discussed with and supervised the regulatory affairs intern physician involved in the care of this patient. I personally saw and examined the patient and discussed the assessment and plan with the entire medicine team, including my attending. I agree with the assessment and plan as documented above. Nabor Morgan MD PGY2 Internal Medicine
[2024-11-10 10:07] LABS: Base Excess 2 (-3-3); HCO3 28 mEq/L (20-26); Inspired Oxygen, FIO2 45 %; O2 Saturation 94 % (91-98); PCO2 46 mmHg (32.0-48.0); PO2 76 mmHg (83-108); pH, Arterial 7.39 (7.35-7.45)
[2024-11-10 10:08] LABS: Allen Test Performed/OK; Puncture Site Right Radial
[2024-11-10] MEDS: PANTOPRAZOLE INJ 40 MG VIAL IVP (10:13)
[2024-11-10] MEDS: cefTRIAXone/D5w 1gm IV premix 50 ML IV (12:09)
[2024-11-10] MEDS: AZITHROMYCIN INJ 500 MG in SODIUM CHLORIDE 0.9% 250 ML 250 ML 250 MG IV (12:49)
[2024-11-10] MEDS: HEPARIN SOD INJ 5000 UNIT/ML VIAL SC ×2 (14:23→21:32)
--- NOTE | 2024-11-10 16:15 | ESCONSULT_ITS ---
HPI Data of Consult Requesting Physician: Yvette Scott MD Primary Care Provider: Marcial Siegel MD Consult Narrative History of present illness: This is a 64-year-old male with past medical history of gastritis, alcohol abuse, meth use, and questionable heart failure and CAD c/o of sob and leg edema no chest pain noted EKG no acute changes ; HR 87 ; BP 1279/82 cc:: cc: Yvette Scott MD Meds Home Medications and Allergies Home Medications ?Medication ?Instructions ?Recorded ?Confirmed ?Type No Known Home Medications 11/10/24 11/10/24 History Allergies Allergy/AdvReac Type Severity Reaction Status Date / Time No Known Allergies Allergy Verified 08/04/22 15:11 Exam Vital Signs Temp Pulse Resp BP Pulse Ox O2 Del Method O2 Flow Rate 97.4 F 87 20 129/82 95 Nasal Cannula 2 11/10/24 14:00 11/10/24 14:00 11/10/24 14:00 11/10/24 14:00 11/10/24 14:00 11/10/24 14:00 11/10/24 14:00 FiO2 90 11/10/24 07:35 Routine HEENT Exam Head: Present normocephalic and atraumatic Eye: Present EOMI and PERRL ENT: Present mucous membranes moist Routine Neck Exam Neck: Present supple and trachea midline Routine Respiratory Exam Respiratory: Present chest non-tender, lungs clear, normal breath sounds and no resp distress Routine Cardiovascular Exam Cardiovascular: Present RRR Routine Abdominal Exam Abdominal: Present soft and normoactive bowel sounds Routine Extremities Exam Extremities: Present full ROM Routine Skin Exam Skin: Present intact, dry and warm Routine Neurological Exam Neurological: Present alert, oriented X3 and CN II-XII intact Routine Psychiatric Exam Psychiatric: Present normal affect and normal thought process Results Labs 11/11/24 04:35 11/11/24 04:35 Labs: Short CBC 11/10/24 Range/Units 04:50 WBC 12.6 H (3.8-10.6) Thou/mm3 Hgb 11.9 L (13.5-16.0) g/dL Hct 38.2 L (41.0-53.0) % Plt Count 287 (140-440) Thou/mm3 BMP 11/10/24 04:50 Sodium 144 Potassium 3.7 Chloride 108 H Carbon Dioxide 24.8 BUN 20 Creatinine 1.0 Glucose 163 H Calcium 8.9 Cardiac Enzymes 11/10/24 11/10/24 Range/Units 04:50 08:32 Troponin I 0.657 H* 0.712 H* (0.0-0.045) ng/mL Liver Function 11/10/24 Range/Units 04:50 Total Bilirubin 0.4 (0.3-1.2) mg/dL AST 26 (0-34) U/L ALT 21 (10-49) U/L Alkaline Phosphatase 159 H (46-116) U/L Albumin 4.2 (3.4-4.8) gm/dL Urine 11/10/24 Range/Units 08:34 Urine Color Colorless A (Lt Yel-Yel) Urine Clarity Clear (Clear/Hazy) Urine pH 6.0 (5.0-7.0) Ur Specific [place] 1.008 (1.001-1.035) Urine Protein Negative (Neg - Trace) Urine Glucose (UA) Negative (Negative) ABG Interpretation ABG results: 11/10/24 10:02 ABG pH 7.39 ABG pCO2 46 ABG pO2 76 L ABG HCO3 28 H ABG O2 Saturation 94 ABG Base Excess 2
[2024-11-10 18:10] LABS: Troponin I 0.562 ng/mL (0.0-0.045)
[2024-11-10 21:16] LABS: Troponin I 0.536 ng/mL (0.0-0.045)
[2024-11-11] VITALS (10 sets, daily range): BP systolic 113–138; BP diastolic 67–95; PULSE 67–108; RESP 12–97; TEMP 36.1–36.9; O2SAT 94–99
[2024-11-11] MEDS: FUROSEMIDE INJ 10 MG/ML 4ML VIAL 40 MG IVP (05:31)
[2024-11-11] MEDS: HEPARIN SOD INJ 5000 UNIT/ML VIAL SC ×3 (05:32→21:38)
[2024-11-11 05:33] LABS: Basophils % (Auto) 0 % (0-2.5); Eosinophils % (Auto) 0 % (0-10); Hematocrit 33.4 % (41.0-53.0); Immature Granulocytes % (Auto) 0 % (0-0); Immature Granulocytes Auto 0.05 Thou/mm3 (0.00-0.00); Lymphocytes # (Auto) 1.7 Thou/mm3 (1.0-4.8); Lymphocytes % (Auto) 12 % (10-50); Mean Corpuscular HGB Conc 32.9 g/dl (31.0-37.0); Mean Corpuscular Hemoglobin 27.1 pg (25.0-35.0); Mean Corpuscular Volume 82 fL (80-100); Monocytes # (Auto) 0.9 Thou/mm3 (0.0-0.8); Monocytes % (Auto) 7 % (0-12); Neutrophils % (Auto) 80 % (37-80); Nucleated Red Blood Cell % 0 /100 WBC (0); Platelet Count 278 Thou/mm3 (140-440); RDW Standard Deviation 53.2 fL (35.1-43.9); Red Blood Count 4.06 Miln/mm3 (4.50-5.90); White Blood Count 13.6 Thou/mm3 (3.8-10.6)
[2024-11-11] MEDS: VANCOMYCIN/NS 1 GM IVPB 200 ML IV ×2 (05:35→21:38)
[2024-11-11 06:10] LABS: Glucose Estimated Average 105 mg/dL (80-131); Hemoglobin A1C 5.3 % Hgb (4.8-6.0)
[2024-11-11 06:23] LABS: Alanine Aminotransferase 17 U/L (10-49); Albumin, Serum 3.8 gm/dL (3.4-4.8); Albumin/Globulin Ratio 1.4 (1.2-2.2); Alkaline Phosphatase 109 U/L (46-116); Anion Gap 10 (7-16); Aspartate Amino Transferase 20 U/L (0-34); BUN/Creatinine Ratio 29 Ratio (12-20); Bilirubin,Total 0.9 mg/dL (0.3-1.2); Blood Urea Nitrogen 29 mg/dL (9-23); Calcium 9.4 mg/dL (8.3-10.6); Calcium (Corrected) 9.6 mg/dL (8.5-10.1); Carbon Dioxide 26.8 mMol/L (20.0-31.0); Cardiac Risk Estimate 2.6 RATIO (4.0-6.7); Chloride 104 mMol/L (98-107); Cholesterol 175 mg/dL (132-200); Estimated Creatinine Clearance 59.6 mL/min (>60); Globulin 2.8 gm/dL (2.3-3.5); Glucose 100 mg/dL (74-106); HDL Cholesterol 68 mg/dL (40-60); LDL Cholesterol,Calculated 89 mg/dL (0-130); Magnesium 2.1 mg/dL (1.6-2.6); Osmolality,Calculated 287 (275-295); Potassium 4.1 mMol/L (3.4-5.1); Sodium 141 mMol/L (136-145); Thyroid Stimulating Hormone 0.99 uIU/mL (0.55-4.78); Total Protein 6.6 gm/dL (5.7-8.2); Triglycerides 89 mg/dL (30-150); eGFR > 60 See Note
[2024-11-11] MEDS: PANTOPRAZOLE INJ 40 MG VIAL IVP (08:00)
[2024-11-11] MEDS: cefTRIAXone/D5w 2gm 2 GM/50 ML BAG IV (10:06)
--- NOTE | 2024-11-11 10:50 | ESPR_ITS ---
<Statement entered by Yvette Scott MD - 11/14/24 12:19> I reviewed above note and agree with findings and plans. I have also personally examined the patient with medicine team and went over assessment and plan with medical team including supervisor international reservations and resident physician. Documentation for date of: 11/11/24 Subjective Subjective Interval history: Patient seen at bedside this morning. No overnight events. Patient is currently on room air and saturating well. Lower extremity edema went down as well. He had total net balance of -3.4 L in the past 24 hours. Patient passed a swallow screen therefore was soft diet. Switched lasix to PO and 40 qday. No other complaints at this time. Pericardial effusion noted in echo, but as per caridologist no need for any intervention at this time as patient is hemodinamically stable. Exam Vital Signs Temp Pulse Resp BP Pulse Ox O2 Del Method O2 Flow Rate 98.4 F 71 12 113/67 99 Room Air 2 11/11/24 08:00 11/11/24 08:00 11/11/24 08:00 11/11/24 08:00 11/11/24 08:00 11/11/24 08:00 11/11/24 03:50 FiO2 90 11/10/24 07:35 Narrative Exam General: A/O x3, in no acute distress, disheveled Eyes: PERRL, EOMI. Anicteric, vision grossly intact. Ears: No ear pain, no ear discharge, Hearing grossly intact. Nose: No nasal discharge. Mouth/Throat: Dry mucous membranes, poor dentation, no redness, no lesions. Neck: Neck supple, non-tender, no cervical lymphadenopathy. Lungs: Crackles HUGH, No accessory muscle use. Cardio: Normal S1/S2, regular rhythm, no murmurs, no JVD Abdomen: Soft, non-tender, no palpable masses, peristalsis present, no guarding or rebound. Extremities: Symmetrical, no significant deformities, no peripheral edema , non-tender, peripheral pulses presents. Skin: No rashes, no lesions, warm to touch. psoriatic lesion beneath umbilicus Neuro: No focal neurological deficits. motor and sensory intact Objective Labs 11/11/24 04:35 11/11/24 04:35 Labs: Laboratory Results - last 24 hr 11/10/24 11/10/24 11/11/24 17:20 20:33 04:35 WBC 13.6 H RBC 4.06 L Hgb 11.0 L Hct 33.4 L MCV 82 MCH 27.1 MCHC 32.9 RDW Std Deviation 53.2 H Plt Count 278 Neut % (Auto) 80 Lymph % (Auto) 12 [place] % (Auto) 7 Eos % (Auto) 0 Baso % (Auto) 0 Neut # (Auto) 11.0 H Lymph # (Auto) 1.7 [place] # (Auto) 0.9 H Eos # (Auto) 0.0 Baso # (Auto) 0.0 Immature Gran # (Auto) 0.05 H Absolute Nucleated RBC 0.00 Immature Gran % 0 Nucleated RBC % 0 Sodium 141 Potassium 4.1 Chloride 104 Carbon Dioxide 26.8 Anion Gap 10 BUN 29 H Creatinine 1.0 Estim Creat Clear Calc 59.6 L eGFR > 60 BUN/Creatinine Ratio 29 H Glucose [address] Glu mg/dL 105 Hemoglobin A1c 5.3 Calculated Osmolality 287 Calcium 9.4 Corrected Calcium 9.6 Magnesium 2.1 Total Bilirubin 0.9 D AST 20 ALT 17 Alkaline Phosphatase 109 D Troponin I 0.562 H* 0.536 H* Total Protein 6.6 Albumin 3.8 Globulin 2.8 Albumin/Globulin Ratio 1.4 Triglycerides 89 Cholesterol 175 LDL Cholesterol, Calc 89 HDL Cholesterol 68 H Cholesterol/HDL Ratio 2.6 L TSH 0.99 ABG Interpretation ABG results: 11/10/24 10:02 ABG pH 7.39 ABG pCO2 46 ABG pO2 76 L ABG HCO3 28 H ABG O2 Saturation 94 ABG Base Excess 2 Quality Measures Quality Measures sepsis Current suspected stage: sepsis Possible source: pulmonary Blood cultures ordered: yes Antibiotic ordered: Yes Assessment & Plan Assessment Current Active Medications: Generic Name Dose Route Start Last Admin Trade Name Freq PRN Reason Stop Dose Admin Acetaminophen 650 mg 11/10/24 09:08 Acetaminophen 325 Mg Tablet PO 12/10/24 09:07 Q6H PRN pain 1-3 and Fever >100.4 Hydrocodone Bitart/Acetaminophen 1 tab 11/10/24 09:08 Hydrocodone/Apap 5/325 Tablet PO 11/15/24 09:07 Q4HR PRN PAIN SCALE 4-10(Mod-Sev Furosemide 40 mg 11/12/24 09:00 Furosemide Inj 10 Mg/Ml 4ml Vial IVP 12/12/24 08:59 QDAY TAYLOR Heparin Sodium (Porcine) 5,000 unit 11/10/24 14:00 11/11/24 05:32 Heparin Sod Inj 5000 Unit/Ml Vial SC 11/24/24 13:59 5,000 unit Q8HR TAYLOR Administration Vancomycin/Sodium Chloride 200 mls @ 120 mls/hr 11/11/24 22:00 Vancomycin/Ns 1 Gm Ivpb IV 11/18/24 21:59 Q24H TAYLOR Protocol Ceftriaxone Sodium/Dextrose 2 gm in 50 mls @ 100 mls/hr 11/11/24 09:15 11/11/24 10:06 Rocephin/D5w 2gm IV 11/18/24 09:14 100 mls/hr QDAY TAYLOR Administration Ondansetron HCl 4 mg 11/10/24 09:08 Ondansetron Inj 2 Mg/Ml Inj 2 Ml IV 12/10/24 09:07 Q6H PRN NAUSEA OR VOMITING Protocol Pantoprazole Sodium 40 mg 11/10/24 09:15 11/11/24 08:00 Pantoprazole Inj 40 Mg Vial IVP 12/10/24 09:14 40 mg QDAY TAYLOR Administration Pharmacy Consult 1 each 11/11/24 09:00 Vancomycin Pharmacy To Dose 1 Each Each IV 12/11/24 08:59 QDAY PRN PROTOCOL Plan 64-year-old male with past medical history of gastritis, alcohol abuse, meth use, and questionable heart failure and CAD history was admitted to the hospital on 11/10/2024 for acute hypoxic respiratory failure likely secondary to acute decompensated heart failure, new onset versus exacerbation and sepsis likely secondary to community-acquired pneumonia. #Acute hypoxic respiratory failure likely secondary to #Acute decompensated heart failure exacerbation, new onset (EF 40-45%) ?Patient came in with complaints of shortness of breath and bilateral lower extremity edema ? DDx acute decompensated heart failure exacerbation likely in the setting of amphetamine use versus medical noncompliance ? BNP 1132 ? Chest x-ray showed CHF pattern ?Echo on 10/2024 showed EF of 40-45% ?Patient had a balance of negative a 50 mL. Plan: ? Lasix 40 PO qday ? Fluid restrictions 1500 mL ? Daily weights ?strict KAMERON's ?O2 administration as needed ? Cardiology consulted, appreciate recommendations #Sepsis likely secondary to #GPC bacteremia in the setting of #Community-acquired pneumonia #Lactic acidosis, resolved ?Patient came in with shortness of breath as well as met SIRS criteria 3 out of 4 with tachypnea, tachycardia, and leukocytosis ?Patient had elevated troponins which can indicate endorgan damage ?Lactic acid 2.5 and down trended ?Patient chest x-ray showed bilateral pneumonia ?Patient's MAP has been above 65 with times in the cane that there is no shock. ? Blood cultures grew GPC's preliminary 2 out of 2 Plan: ? Continue Rocephin [11/10/2024-] ? Started vancomycin [11/11/2024?] ? Blood and sputum cultures ordered - Repeat blood culture in am. ?Held fluids in the setting that patient appears to be fluid overloaded and in heart failure exacerbation ? Will continue to monitor #Pericardial effusion ? Echo on 10/2024 showed moderate to severe pericardial effusion ? Patient does not have any symptoms ? No need for intervention at this time as per [employer] manager. Plan: ? Will continue monitor #NSTEMI likely type II ? Patient denies any chest pain ? Troponins elevated at 0.657 on admission and up trended to 0.712 ? EKG did not show any ST changes ? Mostly in the setting of acute heart failure exacerbation and pneumonia -No heparin drip for now as per cardiology Plan: ? Will continue to monitor ? Cardiology consulted, appreciate commendations #Normocytic normochromic anemia ? Patient's hemoglobin was 11.9 on admission, 11 today ? Patient's baseline hemoglobin is around 14.9 that was on 2021 ? No acute signs of bleeding Plan: ? Will continue to monitor #Polysubstance abuse #Alcohol abuse #Meth use ?Patient's U tox was positive for meth and he has a history of alcohol abuse Plan: ? Referred to director social welfare #Hx of gastritis ? Started patient on pantoprazole Disposition: Patient admitted to telemetry for HF exacerbation and CAP and NSTEMI. Diet: Cardiac GI prophylaxis: protonix DVT prophylaxis: Heparin sc Code:Full code Case disclosed with Attending Dr. Scott and My senior Dr. Morgan PGY2. Sin Cavazos PGY1 Senior Resident Attestation: Mr. Alcantara is a 64 YO M with PMH multi-substance abuse disorder, gastritis and possible CHF presented with SOB and was found to have AHRF 2/2 Sepsis 2/2 community acquired PNA with end organ failure as NSTEMI type 2. The patient reported doing well this morning. He denied any SOB, chest pain, lightheadedness, headache, sore throat, any GI or urinary symptoms. He denied any fever or chills. However, he was found to have GPC growing on both bottles for blood culture. He was negative by 2.5 L overnight. His vitals were stable, saturating 96 to 97% on room air. Physical exam was unremarkable. His troponins trended down overnight. TTE revealed ejection fraction of 40 to 45%. We will discontinue his IV furosemide, and place him on oral furosemide 40 Mg daily. The patient was also started on vancomycin and increased the dose of ceftriaxone to 2 g daily for GPC bacteremia. We will repeat blood culture tomorrow morning. We will f/u on his cultures and continue to monitor INS/Out with fluid restriction to 1500cc. We will slowly start him on GDMT as tolerated from tomorrow. Pending further reccs from [employer] manager Dr. Simental. I discussed with and supervised the supervisor international reservations physician involved in the care of this patient. I personally saw and examined the patient and discussed the assessment and plan with the entire medicine team, including my attending. I agree with the assessment and plan as documented above. Nabor Morgan MD PGY2 Internal Medicine
--- NOTE | 2024-11-11 12:20 | ESPR_ITS ---
Documentation for date of: 11/11/24 Subjective Subjective Interval history: feeling ok edema improved no sob or chest pain vitals satisfactory Exam Vital Signs Temp Pulse Resp BP Pulse Ox O2 Del Method O2 Flow Rate 98.4 F 71 12 113/67 99 Room Air 2 11/11/24 08:00 11/11/24 08:00 11/11/24 08:00 11/11/24 08:00 11/11/24 08:00 11/11/24 08:00 11/11/24 03:50 FiO2 90 11/10/24 07:35 Routine HEENT Exam Head: Present normocephalic and atraumatic Eye: Present EOMI and PERRL ENT: Present mucous membranes moist Routine Neck Exam Neck: Present supple and trachea midline Routine Respiratory Exam Respiratory: Present chest non-tender, lungs clear, normal breath sounds and no resp distress Routine Cardiovascular Exam Cardiovascular: Present RRR Routine Abdominal Exam Abdominal: Present soft and normoactive bowel sounds Routine Extremities Exam Extremities: Present full ROM Routine Skin Exam Skin: Present intact, dry and warm Routine Neurological Exam Neurological: Present alert, oriented X3 and CN II-XII intact Routine Psychiatric Exam Psychiatric: Present normal affect and normal thought process Objective Labs 11/11/24 04:35 11/11/24 04:35 Labs: Laboratory Results - last 24 hr 11/10/24 11/10/24 11/11/24 17:20 20:33 04:35 WBC 13.6 H RBC 4.06 L Hgb 11.0 L Hct 33.4 L MCV 82 MCH 27.1 MCHC 32.9 RDW Std Deviation 53.2 H Plt Count 278 Neut % (Auto) 80 Lymph % (Auto) 12 [place] % (Auto) 7 Eos % (Auto) 0 Baso % (Auto) 0 Neut # (Auto) 11.0 H Lymph # (Auto) 1.7 [place] # (Auto) 0.9 H Eos # (Auto) 0.0 Baso # (Auto) 0.0 Immature Gran # (Auto) 0.05 H Absolute Nucleated RBC 0.00 Immature Gran % 0 Nucleated RBC % 0 Sodium 141 Potassium 4.1 Chloride 104 Carbon Dioxide 26.8 Anion Gap 10 BUN 29 H Creatinine 1.0 Estim Creat Clear Calc 59.6 L eGFR > 60 BUN/Creatinine Ratio 29 H Glucose [address] Glu mg/dL 105 Hemoglobin A1c 5.3 Calculated Osmolality 287 Calcium 9.4 Corrected Calcium 9.6 Magnesium 2.1 Total Bilirubin 0.9 D AST 20 ALT 17 Alkaline Phosphatase 109 D Troponin I 0.562 H* 0.536 H* Total Protein 6.6 Albumin 3.8 Globulin 2.8 Albumin/Globulin Ratio 1.4 Triglycerides 89 Cholesterol 175 LDL Cholesterol, Calc 89 HDL Cholesterol 68 H Cholesterol/HDL Ratio 2.6 L TSH 0.99 ABG Interpretation ABG results: 11/10/24 10:02 ABG pH 7.39 ABG pCO2 46 ABG pO2 76 L ABG HCO3 28 H ABG O2 Saturation 94 ABG Base Excess 2 Assessment & Plan A&P Narrative pt feeling ok vitals stable continue heart failure meds elevated troponin most likely due to demand ischemia doubt acute coronary syndorme Time Spent With Patient Time: Total time spent is greater than 50% in coordination of care (as documented) at patient's floor/unit and/or counseling patient:
[2024-11-12] VITALS (12 sets, daily range): BP systolic 134–156; BP diastolic 83–92; PULSE 62–103; RESP 17–97; TEMP 36.1–37; O2SAT 93–99
[2024-11-12] MEDS: HEPARIN SOD INJ 5000 UNIT/ML VIAL SC ×3 (05:15→21:28)
[2024-11-12 06:29] LABS: Basophils # (Auto) 0.1 Thou/mm3 (0.0-0.2); Basophils % (Auto) 1 % (0-2.5); Eosinophils # (Auto) 0.1 Thou/mm3 (0.0-0.5); Eosinophils % (Auto) 1 % (0-10); Hemoglobin 11.8 g/dL (13.5-16.0); Immature Granulocytes % (Auto) 0 % (0-0); Immature Granulocytes Auto 0.03 Thou/mm3 (0.00-0.00); Lymphocytes # (Auto) 1.9 Thou/mm3 (1.0-4.8); Lymphocytes % (Auto) 20 % (10-50); Mean Corpuscular HGB Conc 31.9 g/dl (31.0-37.0); Mean Corpuscular Hemoglobin 26.2 pg (25.0-35.0); Mean Corpuscular Volume 82 fL (80-100); Monocytes # (Auto) 0.6 Thou/mm3 (0.0-0.8); Monocytes % (Auto) 6 % (0-12); Neutrophils # (Auto) 7.1 Thou/mm3 (1.8-7.7); Neutrophils % (Auto) 72 % (37-80); Nucleated Red Blood Cell % 0 /100 WBC (0); Platelet Count 313 Thou/mm3 (140-440); White Blood Count 9.9 Thou/mm3 (3.8-10.6)
[2024-11-12 06:46] LABS: Alanine Aminotransferase 17 U/L (10-49); Albumin, Serum 4.1 gm/dL (3.4-4.8); Albumin/Globulin Ratio 1.4 (1.2-2.2); Alkaline Phosphatase 109 U/L (46-116); Anion Gap 9 (7-16); Aspartate Amino Transferase 15 U/L (0-34); BUN/Creatinine Ratio 32 Ratio (12-20); Bilirubin,Total 0.7 mg/dL (0.3-1.2); Blood Urea Nitrogen 32 mg/dL (9-23); Calcium 9.6 mg/dL (8.3-10.6); Calcium (Corrected) 9.6 mg/dL (8.5-10.1); Carbon Dioxide 26.5 mMol/L (20.0-31.0); Chloride 106 mMol/L (98-107); Estimated Creatinine Clearance 58.1 mL/min (>60); Globulin 2.9 gm/dL (2.3-3.5); Glucose 91 mg/dL (74-106); Osmolality,Calculated 288 (275-295); Potassium 3.8 mMol/L (3.4-5.1); Sodium 141 mMol/L (136-145); eGFR > 60 See Note
[2024-11-12] MEDS: cefTRIAXone/D5w 2gm 2 GM/50 ML BAG IV (08:01)
[2024-11-12] MEDS: Furosemide 40 MG TABLET PO (08:01)
[2024-11-12] MEDS: PANTOPRAZOLE INJ 40 MG VIAL IVP (08:01)
--- NOTE | 2024-11-12 12:06 | ESPR_ITS ---
<Statement entered by Yvette Scott MD - 11/17/24 15:05> I reviewed above note and agree with findings and plans. I have also personally examined the patient with medicine team and went over assessment and plan with medical team including actuarial internship and resident physician. Documentation for date of: 11/12/24 Subjective Subjective Interval history: Patient was seen at bedside this morning. No overnight events. Patient had total negative balance of 3.4 L and kidney function is stable at this time. His breathing is a lot better and there are no crackles present at this time. Blood cultures did grow GPC's in 48 hours, pending sensitivity. ID consulted. No other complaints at this time. Will continue with p.o. Lasix 40 daily. Exam Vital Signs Temp Pulse Resp BP Pulse Ox O2 Del Method O2 Flow Rate 97.5 F 62 21 H 156/88 H 96 Room Air 2 11/12/24 07:57 11/12/24 09:05 11/12/24 09:05 11/12/24 08:01 11/12/24 07:57 11/12/24 07:57 11/11/24 03:50 FiO2 90 11/10/24 07:35 Narrative Exam General: A/O x3, in no acute distress, disheveled Eyes: PERRL, EOMI. Anicteric, vision grossly intact. Ears: No ear pain, no ear discharge, Hearing grossly intact. Nose: No nasal discharge. Mouth/Throat: Dry mucous membranes, poor dentation, no redness, no lesions. Neck: Neck supple, non-tender, no cervical lymphadenopathy. Lungs: Clear HUGH, No accessory muscle use. Cardio: Normal S1/S2, regular rhythm, no murmurs, no JVD Abdomen: Soft, non-tender, no palpable masses, peristalsis present, no guarding or rebound. Extremities: Symmetrical, no significant deformities, no peripheral edema , non-tender, peripheral pulses presents. Skin: No rashes, no lesions, warm to touch. psoriatic lesion beneath umbilicus Neuro: No focal neurological deficits. motor and sensory intact Objective Labs 11/12/24 04:50 11/12/24 04:50 Labs: Laboratory Results - last 24 hr 11/12/24 04:50 WBC 9.9 RBC 4.50 Hgb 11.8 L Hct 37.0 L MCV 82 MCH 26.2 MCHC 31.9 RDW Std Deviation 54.0 H Plt Count 313 D Neut % (Auto) 72 Lymph % (Auto) 20 [place] % (Auto) 6 Eos % (Auto) 1 Baso % (Auto) 1 Neut # (Auto) 7.1 Lymph # (Auto) 1.9 [place] # (Auto) 0.6 Eos # (Auto) 0.1 Baso # (Auto) 0.1 Immature Gran # (Auto) 0.03 H Absolute Nucleated RBC 0.00 Immature Gran % 0 Nucleated RBC % 0 Sodium 141 Potassium 3.8 Chloride 106 Carbon Dioxide 26.5 Anion Gap 9 BUN 32 H Creatinine 1.0 Estim Creat Clear Calc 58.1 L eGFR > 60 BUN/Creatinine Ratio 32 H Glucose 91 Calculated Osmolality 288 Calcium 9.6 Corrected Calcium 9.6 Magnesium 2.0 Total Bilirubin 0.7 AST 15 ALT 17 Alkaline Phosphatase 109 Total Protein 7.0 Albumin 4.1 Globulin 2.9 Albumin/Globulin Ratio 1.4 ABG Interpretation ABG results: 11/10/24 10:02 ABG pH 7.39 ABG pCO2 46 ABG pO2 76 L ABG HCO3 28 H ABG O2 Saturation 94 ABG Base Excess 2 Quality Measures Quality Measures sepsis Current suspected stage: sepsis Possible source: pulmonary Blood cultures ordered: yes Antibiotic ordered: Yes Assessment & Plan Assessment Current Active Medications: Generic Name Dose Route Start Last Admin Trade Name Freq PRN Reason Stop Dose Admin Acetaminophen 650 mg 11/10/24 09:08 Acetaminophen 325 Mg Tablet PO 12/10/24 09:07 Q6H PRN pain 1-3 and Fever >100.4 Hydrocodone Bitart/Acetaminophen 1 tab 11/10/24 09:08 Hydrocodone/Apap 5/325 Tablet PO 11/15/24 09:07 Q4HR PRN PAIN SCALE 4-10(Mod-Sev Furosemide 40 mg 11/12/24 09:00 11/12/24 08:01 Furosemide 40 Mg Tablet PO 12/12/24 08:59 40 mg QDAY TAYLOR Administration Heparin Sodium (Porcine) 5,000 unit 11/10/24 14:00 11/12/24 05:15 Heparin Sod Inj 5000 Unit/Ml Vial SC 11/24/24 13:59 5,000 unit Q8HR TAYLOR Administration Vancomycin/Sodium Chloride 200 mls @ 120 mls/hr 11/11/24 22:00 11/12/24 05:15 Vancomycin/Ns 1 Gm Ivpb IV 11/18/24 21:59 Infused Q24H TAYLOR Infusion Protocol Ceftriaxone Sodium/Dextrose 2 gm in 50 mls @ 100 mls/hr 11/11/24 09:15 11/12/24 08:01 Rocephin/D5w 2gm IV 11/18/24 09:14 100 mls/hr QDAY TAYLOR Administration Ondansetron HCl 4 mg 11/10/24 09:08 Ondansetron Inj 2 Mg/Ml Inj 2 Ml IV 12/10/24 09:07 Q6H PRN NAUSEA OR VOMITING Protocol Pantoprazole Sodium 40 mg 11/10/24 09:15 11/12/24 08:01 Pantoprazole Inj 40 Mg Vial IVP 12/10/24 09:14 40 mg QDAY TAYLOR Administration Pharmacy Consult 1 each 11/11/24 09:00 Vancomycin Pharmacy To Dose 1 Each Each IV 12/11/24 08:59 QDAY PRN PROTOCOL Plan 64-year-old male with past medical history of gastritis, alcohol abuse, meth use, and questionable heart failure and CAD history was admitted to the hospital on 11/10/2024 for acute hypoxic respiratory failure likely secondary to acute decompensated heart failure, new onset versus exacerbation and sepsis likely secondary to community-acquired pneumonia. #Acute hypoxic respiratory failure likely secondary to #Acute decompensated heart failure exacerbation, new onset (EF 40-45%) ?Patient came in with complaints of shortness of breath and bilateral lower extremity edema ? DDx acute decompensated heart failure exacerbation likely in the setting of amphetamine use versus medical noncompliance ? BNP 1132 ? Chest x-ray showed CHF pattern ?Echo on 10/2024 showed EF of 40-45% ?Patient had a balance of negative a 3.4 L. Plan: ? Lasix 40 PO qday ? Fluid restrictions 1500 mL ? Daily weights ?strict KAMERON's ?O2 administration as needed ? Cardiology consulted, appreciate recommendations #Sepsis likely secondary to #GPC bacteremia in the setting of #Community-acquired pneumonia #Lactic acidosis, resolved ?Patient came in with shortness of breath as well as met SIRS criteria 3 out of 4 with tachypnea, tachycardia, and leukocytosis ?Patient had elevated troponins which can indicate endorgan damage ?Lactic acid 2.5 and down trended ?Patient chest x-ray showed bilateral pneumonia ?Patient's MAP has been above 65 with times in the cane that there is no shock. ? Blood cultures grew GPC's preliminary 2 out of 2, pending sensitivity Plan: ? Continue Rocephin [11/10/2024-] ? Continue vancomycin [11/11/2024?] ? Blood and sputum cultures ordered - Repeat blood culture ordered -ID consulted, appreciate recommendations. ? Will continue to monitor #Pericardial effusion ? Echo on 10/2024 showed moderate to severe pericardial effusion ? Patient does not have any symptoms ? No need for intervention at this time as per library services coordinator. Plan: ? Will continue monitor #NSTEMI likely type II ? Patient denies any chest pain ? Troponins elevated at 0.657 on admission and up trended to 0.712 ? EKG did not show any ST changes ? Mostly in the setting of acute heart failure exacerbation and pneumonia -No heparin drip for now as per cardiology Plan: ? Will continue to monitor ? Cardiology consulted, appreciate commendations #Normocytic normochromic anemia ? Patient's hemoglobin was 11.9 on admission, 11.8 today ? Patient's baseline hemoglobin is around 14.9 that was on 2021 ? No acute signs of bleeding Plan: ? Will continue to monitor #Polysubstance abuse #Alcohol abuse #Meth use ?Patient's U tox was positive for meth and he has a history of alcohol abuse Plan: ? Referred to socially responsible investment adviser #Hx of gastritis ? Started patient on pantoprazole Disposition: Patient continue lasix 40mg PO daily. Pending Blood Cx sensitivity. Diet: Cardiac GI prophylaxis: protonix DVT prophylaxis: Heparin sc Code:Full code Case disclosed with Attending Dr. Sonia Cavazos PGY1
[2024-11-12] MEDS: VANCOMYCIN/NS 1 GM IVPB 200 ML IV (21:28)
[2024-11-13] VITALS (7 sets, daily range): BP systolic 145–156; BP diastolic 88–95; PULSE 69–82; RESP 17–97; TEMP 36.1–36.4; O2SAT 95–99; BMI 19.8
[2024-11-13] MEDS: HEPARIN SOD INJ 5000 UNIT/ML VIAL SC (05:20)
[2024-11-13 06:07] LABS: Basophils # (Auto) 0.1 Thou/mm3 (0.0-0.2); Basophils % (Auto) 1 % (0-2.5); Eosinophils # (Auto) 0.2 Thou/mm3 (0.0-0.5); Eosinophils % (Auto) 2 % (0-10); Hematocrit 38.4 % (41.0-53.0); Immature Granulocytes % (Auto) 0 % (0-0); Immature Granulocytes Auto 0.04 Thou/mm3 (0.00-0.00); Lymphocytes % (Auto) 22 % (10-50); Mean Corpuscular HGB Conc 31.3 g/dl (31.0-37.0); Mean Corpuscular Hemoglobin 25.8 pg (25.0-35.0); Mean Corpuscular Volume 82 fL (80-100); Monocytes # (Auto) 0.5 Thou/mm3 (0.0-0.8); Monocytes % (Auto) 6 % (0-12); Neutrophils # (Auto) 6.2 Thou/mm3 (1.8-7.7); Neutrophils % (Auto) 69 % (37-80); Nucleated Red Blood Cell % 0 /100 WBC (0); Platelet Count 273 Thou/mm3 (140-440); RDW Standard Deviation 52.8 fL (35.1-43.9); Red Blood Count 4.66 Miln/mm3 (4.50-5.90)
[2024-11-13 06:24] LABS: Alanine Aminotransferase 19 U/L (10-49); Albumin, Serum 4.2 gm/dL (3.4-4.8); Anion Gap 9 (7-16); Aspartate Amino Transferase 20 U/L (0-34); BUN/Creatinine Ratio 23 Ratio (12-20); Bilirubin,Total 0.5 mg/dL (0.3-1.2); Blood Urea Nitrogen 23 mg/dL (9-23); Calcium 9.7 mg/dL (8.3-10.6); Calcium (Corrected) 9.7 mg/dL (8.5-10.1); Carbon Dioxide 25.2 mMol/L (20.0-31.0); Chloride 105 mMol/L (98-107); Estimated Creatinine Clearance 56.6 mL/min (>60); Globulin 2.9 gm/dL (2.3-3.5); Glucose 101 mg/dL (74-106); Osmolality,Calculated 281 (275-295); Potassium 3.8 mMol/L (3.4-5.1); Sodium 139 mMol/L (136-145); Total Protein 7.1 gm/dL (5.7-8.2); eGFR > 60 See Note
[2024-11-13 06:25] LABS: Albumin/Globulin Ratio 1.4 (1.2-2.2); Alkaline Phosphatase 114 U/L (46-116)
[2024-11-13] MEDS: cefTRIAXone/D5w 2gm 2 GM/50 ML BAG IV (08:18)
[2024-11-13] MEDS: METOPROLOL SUCCINATE XL 25 MG TABCR PO (08:18)
[2024-11-13] MEDS: LOSARTAN POTASSIUM 25 MG TABLET PO (08:19)
[2024-11-13] MEDS: PANTOPRAZOLE INJ 40 MG VIAL IVP (08:19)
[2024-11-13] MEDS: Furosemide 40 MG TABLET PO (08:19)
[2024-11-13] MEDS: POTASSIUM CHLORIDE 20 mEq TABCR 40 MEQ PO (08:19)
--- NOTE | 2024-11-13 10:28 | PD.IDPROG ---
Subjective Subjective Interval history: called lab to w/u bc as one that was evaluated was coag neg and bc were done 20 mins aparton 11/10. wednesday Exam Vital Signs Temp Pulse Resp BP Pulse Ox O2 Del Method O2 Flow Rate 97.0 F 75 17 153/91 H 96 Room Air 2 11/13/24 08:00 11/13/24 08:19 11/13/24 08:00 11/13/24 08:19 11/13/24 08:00 11/13/24 08:00 11/11/24 03:50 FiO2 90 11/10/24 07:35 Narrative Exam limited visit Objective - Internal Medicine Labs 11/13/24 05:32 11/13/24 05:32 Labs: Laboratory Results - last 24 hr 11/13/24 05:32 WBC 9.0 RBC 4.66 Hgb 12.0 L Hct 38.4 L MCV 82 MCH 25.8 MCHC 31.3 RDW Std Deviation 52.8 H Plt Count 273 D Neut % (Auto) 69 Lymph % (Auto) 22 [place] % (Auto) 6 Eos % (Auto) 2 Baso % (Auto) 1 Neut # (Auto) 6.2 Lymph # (Auto) 2.0 [place] # (Auto) 0.5 Eos # (Auto) 0.2 Baso # (Auto) 0.1 Immature Gran # (Auto) 0.04 H Absolute Nucleated RBC 0.00 Immature Gran % 0 Nucleated RBC % 0 Sodium 139 Potassium 3.8 Chloride 105 Carbon Dioxide 25.2 Anion Gap 9 BUN 23 Creatinine 1.0 Estim Creat Clear Calc 56.6 L eGFR > 60 BUN/Creatinine Ratio 23 H Glucose 101 Calculated Osmolality 281 Calcium 9.7 Corrected Calcium 9.7 Magnesium 2.0 Total Bilirubin 0.5 AST 20 ALT 19 Alkaline Phosphatase 114 Total Protein 7.1 Albumin 4.2 Globulin 2.9 Albumin/Globulin Ratio 1.4 ABG Interpretation ABG results: 11/10/24 10:02 ABG pH 7.39 ABG pCO2 46 ABG pO2 76 L ABG HCO3 28 H ABG O2 Saturation 94 ABG Base Excess 2 Assessment & Plan A&P Narrative bacteremia vs contamination substance use disorder. avoid substances asked lab to evaluate the other pos bc . if it too is coag neg, then we may not have much to do as pt was afebrile on arrival Time Spent With Patient Time: Total time spent is greater than 50% in coordination of care (as documented) at patient's floor/unit and/or counseling patient:
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
--- NOTE | 2024-11-13 11:50 | ESPR_ITS ---
<Statement entered by Yvette Scott MD - 11/19/24 16:26> I reviewed above note and agree with findings and plans. I have also personally examined the patient with medicine team and went over assessment and plan with medical team including hr internship and resident physician. Documentation for date of: 11/13/24 Subjective Subjective Interval history: Patient was seen at bedside this morning. No overnight events. Patient had a total balance of -1.15 L in the last 24 hours. Will remove his Calvert today. No other complaints at this time. Will wait for final results on blood cultures as initial blood cultures grew strep hominis which could be a contaminant. Anticipate discharge in the next 24 to 48 hours if blood cultures were indeed contaminant. Exam Vital Signs Temp Pulse Resp BP Pulse Ox O2 Del Method O2 Flow Rate 97.0 F 75 17 153/91 H 96 Room Air 2 11/13/24 08:00 11/13/24 08:19 11/13/24 08:00 11/13/24 08:19 11/13/24 08:00 11/13/24 08:00 11/11/24 03:50 FiO2 90 11/10/24 07:35 Narrative Exam General: A/O x3, in no acute distress, disheveled Eyes: PERRL, EOMI. Anicteric, vision grossly intact. Ears: No ear pain, no ear discharge, Hearing grossly intact. Nose: No nasal discharge. Mouth/Throat: Dry mucous membranes, poor dentation, no redness, no lesions. Neck: Neck supple, non-tender, no cervical lymphadenopathy. Lungs: Clear HUGH, No accessory muscle use. Cardio: Normal S1/S2, regular rhythm, no murmurs, no JVD Abdomen: Soft, non-tender, no palpable masses, peristalsis present, no guarding or rebound. Extremities: Symmetrical, no significant deformities, no peripheral edema , non-tender, peripheral pulses presents. Skin: No rashes, no lesions, warm to touch. psoriatic lesion beneath umbilicus Neuro: No focal neurological deficits. motor and sensory intact Objective Labs 11/13/24 05:32 11/13/24 05:32 Labs: Laboratory Results - last 24 hr 11/13/24 05:32 WBC 9.0 RBC 4.66 Hgb 12.0 L Hct 38.4 L MCV 82 MCH 25.8 MCHC 31.3 RDW Std Deviation 52.8 H Plt Count 273 D Neut % (Auto) 69 Lymph % (Auto) 22 [place] % (Auto) 6 Eos % (Auto) 2 Baso % (Auto) 1 Neut # (Auto) 6.2 Lymph # (Auto) 2.0 [place] # (Auto) 0.5 Eos # (Auto) 0.2 Baso # (Auto) 0.1 Immature Gran # (Auto) 0.04 H Absolute Nucleated RBC 0.00 Immature Gran % 0 Nucleated RBC % 0 Sodium 139 Potassium 3.8 Chloride 105 Carbon Dioxide 25.2 Anion Gap 9 BUN 23 Creatinine 1.0 Estim Creat Clear Calc 56.6 L eGFR > 60 BUN/Creatinine Ratio 23 H Glucose 101 Calculated Osmolality 281 Calcium 9.7 Corrected Calcium 9.7 Magnesium 2.0 Total Bilirubin 0.5 AST 20 ALT 19 Alkaline Phosphatase 114 Total Protein 7.1 Albumin 4.2 Globulin 2.9 Albumin/Globulin Ratio 1.4 ABG Interpretation ABG results: 11/10/24 10:02 ABG pH 7.39 ABG pCO2 46 ABG pO2 76 L ABG HCO3 28 H ABG O2 Saturation 94 ABG Base Excess 2 Quality Measures Quality Measures sepsis Current suspected stage: ruled out Possible source: pulmonary Blood cultures ordered: yes Antibiotic ordered: Yes Assessment & Plan Assessment Current Active Medications: Generic Name Dose Route Start Last Admin Trade Name Freq PRN Reason Stop Dose Admin Acetaminophen 650 mg 11/10/24 09:08 Acetaminophen 325 Mg Tablet PO 12/10/24 09:07 Q6H PRN pain 1-3 and Fever >100.4 Hydrocodone Bitart/Acetaminophen 1 tab 11/10/24 09:08 Hydrocodone/Apap 5/325 Tablet PO 11/15/24 09:07 Q4HR PRN PAIN SCALE 4-10(Mod-Sev Furosemide 40 mg 11/12/24 09:00 11/13/24 08:19 Furosemide 40 Mg Tablet PO 12/12/24 08:59 40 mg QDAY TAYLOR Administration Heparin Sodium (Porcine) 5,000 unit 11/10/24 14:00 11/13/24 05:20 Heparin Sod Inj 5000 Unit/Ml Vial SC 11/24/24 13:59 5,000 unit Q8HR TAYLOR Administration Vancomycin/Sodium Chloride 200 mls @ 120 mls/hr 11/11/24 22:00 11/12/24 21:28 Vancomycin/Ns 1 Gm Ivpb IV 11/18/24 21:59 120 mls/hr Q24H TAYLOR Administration Protocol Losartan Potassium 25 mg 11/13/24 09:00 11/13/24 08:19 Losartan Potassium 25 Mg Tablet PO 12/13/24 08:59 25 mg QDAY TAYLOR Administration Metoprolol Succinate 25 mg 11/13/24 09:00 11/13/24 08:18 Metoprolol Succinate Xl 25 Mg Tabcr PO 12/13/24 08:59 25 mg QDAY TAYLOR Administration Ondansetron HCl 4 mg 11/10/24 09:08 Ondansetron Inj 2 Mg/Ml Inj 2 Ml IV 12/10/24 09:07 Q6H PRN NAUSEA OR VOMITING Protocol Pantoprazole Sodium 40 mg 11/10/24 09:15 11/13/24 08:19 Pantoprazole Inj 40 Mg Vial IVP 12/10/24 09:14 40 mg QDAY TAYLOR Administration Pharmacy Consult 1 each 11/11/24 09:00 Vancomycin Pharmacy To Dose 1 Each Each IV 12/11/24 08:59 QDAY PRN PROTOCOL Plan 64-year-old male with past medical history of gastritis, alcohol abuse, meth use, and questionable heart failure and CAD history was admitted to the hospital on 11/10/2024 for acute hypoxic respiratory failure likely secondary to acute decompensated heart failure, new onset versus exacerbation and sepsis likely secondary to community-acquired pneumonia. #Acute hypoxic respiratory failure likely secondary to #Acute decompensated heart failure exacerbation, new onset (EF 40-45%) ?Patient came in with complaints of shortness of breath and bilateral lower extremity edema ? DDx acute decompensated heart failure exacerbation likely in the setting of amphetamine use versus medical noncompliance ? BNP 1132 ? Chest x-ray showed CHF pattern ?Echo on 10/2024 showed EF of 40-45% ?Patient had a balance of negative a 3.4 L. Plan: ? Lasix 40 PO qday ? Fluid restrictions 1500 mL ? Daily weights ?strict KAMERON's ?O2 administration as needed ? Cardiology consulted, appreciate recommendations #Sepsis likely secondary to #S. hominis bacteremia? in the setting of #Community-acquired pneumonia #Lactic acidosis, resolved ?Patient came in with shortness of breath as well as met SIRS criteria 3 out of 4 with tachypnea, tachycardia, and leukocytosis ?Patient had elevated troponins which can indicate endorgan damage ?Lactic acid 2.5 and down trended ?Patient chest x-ray showed bilateral pneumonia ?Patient's MAP has been above 65 with times in the cane that there is no shock. ? Blood cultures grew GPC's preliminary 2 out of 2, and sensitivity showed s. hominis Plan: ? Continue Rocephin [11/10/2024-] ? Continue vancomycin [11/11/2024?] ? Blood and sputum cultures ordered - Repeat blood culture pending oficial results -ID consulted, appreciate recommendations. ? Will continue to monitor #Pericardial effusion ? Echo on 10/2024 showed moderate to severe pericardial effusion ? Patient does not have any symptoms ? No need for intervention at this time as per wedding designer. Plan: ? Will continue monitor #NSTEMI likely type II ? Patient denies any chest pain ? Troponins elevated at 0.657 on admission and up trended to 0.712 ? EKG did not show any ST changes ? Mostly in the setting of acute heart failure exacerbation and pneumonia -No heparin drip for now as per cardiology Plan: ? Will continue to monitor ? Cardiology consulted, appreciate commendations #Normocytic normochromic anemia ? Patient's hemoglobin was 11.9 on admission, 12 today ? Patient's baseline hemoglobin is around 14.9 that was on 2021 ? No acute signs of bleeding Plan: ? Will continue to monitor #Polysubstance abuse #Alcohol abuse #Meth use ?Patient's U tox was positive for meth and he has a history of alcohol abuse Plan: ? Referred to child protective services social worker #Hx of gastritis ? Continue patient on pantoprazole Disposition: Patient continue lasix 40mg PO daily. Diet: Cardiac GI prophylaxis: protonix DVT prophylaxis: Heparin sc Code:Full code Case disclosed with Attending Dr. Scott and my senior Dr. Morgan PGY2 Sin Cavazos PGY1 Senior Resident Attestation: Mr. Alcantara is a 64 YO M with PMH multi-substance abuse disorder, gastritis and possible CHF presented with SOB and was found to have AHRF 2/2 Sepsis 2/2 community acquired PNA with end organ failure as NSTEMI type 2. The patient reported doing well this morning. He denied any SOB, chest pain, lightheadedness, headache, sore throat, any GI or urinary symptoms. He denied any fever or chills. However, he was found to have GPC growing on both bottles for blood culture, with 1 bottle growin S. hominis and other specification pending. His vitals were stable, saturating 96 to 97% on room air. Physical exam was unremarkable. We will discontinue his IV furosemide, and place him on oral furosemide 40 Mg daily. The patient was also continued on vancomycin and ceftriaxone to 2 g daily for GPC bacteremia. However, later patient eloped. I discussed with and supervised the hr internship physician involved in the care of this patient. I personally saw and examined the patient and discussed the assessment and plan with the entire medicine team, including my attending. I agree with the assessment and plan as documented above. Nabor Morgan MD PGY2 Internal Medicine
--- NOTE | 2024-11-13 14:04 | EVENTNT_ITS ---
<Statement entered by Yvette Scott MD - 11/19/24 16:26> I reviewed above note and agree with findings and plans. I have also personally examined the patient with medicine team and went over assessment and plan with medical team including automotive internet sales manager and resident physician. Documentation for date of: 11/13/24 Event Note Event Note: Code green was called today for the patient. Patient left the hospital with an IV line and we were unable to localize the patient after multiple attempts were conducted. Case disclosed with Attending Dr. Sonia Cavazos PGY1
--- NOTE | 2024-11-13 14:11 | PC.NURSE ---
Pt eloped at 1248. Discovery of missing pt at 1327 and code green subsequently called. Review of security cameras reveled pt left at 1248, exited hospital and headed down [facility] toward [facility]. Pt appears to have left with IVs still intact. [place] [employer] contacted. [employer] report submitted.
--- NOTE | 2024-11-13 14:16 | ESDS_ITS ---
<Statement entered by Yvette Scott MD - 11/19/24 16:26> I reviewed above note and agree with findings and plans. I have also personally examined the patient with medicine team and went over assessment and plan with medical team including grad intern and resident physician. Planned Discharge Date 11/13/24 DS: Providers Provider Date of admission: 11/10/24 09:08 Primary care physician: Marcial Siegel MD Admitting Provider: Yvette Scott MD Attending Provider on Admission: Yvette Scott MD Consults: 11/10/24 08:30 Consult to Cardiology Stat Comment: Consulting Provider: Kasi Simental 11/10/24 10:24 Referral Speech Therapy Stat Comment: 11/12/24 10:10 Consult to Infectious Diseases Routine Comment: Consulting Provider: Ze Carroll Attending Provider on DC: Yvette Scott MD Discharging Provider: Yvette Scott MD DS: Diagnosis Problem List Completed Was Problem List Reviewed/Reconciled?: Yes Hospital Course Hospital Course Hospital course: 64-year-old male with past medical history of gastritis, alcohol abuse, meth use, and questionable heart failure and CAD history was admitted to the hospital on 11/10/2024 for acute hypoxic respiratory failure likely secondary to acute decompensated heart failure, new onset and sepsis likely secondary to S. hominis bacteremia likely secondary to community-acquired pneumonia. In the ED patient came in with complaints of shortness of breath and lower extremity swelling. Initially patient came in hypertensive, tachypneic, tachycardic, and afebrile. Initial labs were relevant for leukocytosis (12.6), anemia (11.9), lactic acidosis, elevated troponins (0.657 and up trended to 0.712), elevated BNP 1132, and UTI was positive for meth. Initial imaging included chest x-ray which showed some pneumonia with heart failure pattern as well. EKG showed sinus tachycardia with right bundle branch block, but no acute ST changes. Cardiology was consulted due to patient having elevated troponins when patient initially came in as well as likely new onset heart failure. Echo was done and showed that patient had a ejection fraction of 40 to 45% as well as pericardial effusion. Cardiology stated that there was no need for intervention for the pericardial effusion at this time and that the patient's troponins were likely in the setting of heart failure as they downtrended and patient did not have any chest pain. Patient was treated with IV Lasix and he diuresed well with significant improvement in his lower extremity edema and lung sounds. Patient was also placed on IV antibiotics due to pneumonia and his blood cultures grew GPC's initially and then on subsequent report they grew staph hominis. We were still pending that blood cultures were actually Staph hominis and not a contaminant. Today patient left the hospital and eloped with an IV line. Multiple attempts were done to localize the patient, but were futile. Problem list: #Acute hypoxic respiratory failure likely secondary to #Acute decompensated heart failure exacerbation, new onset (EF 40-45%) #Sepsis likely secondary to #GPC bacteremia in the setting of #Community-acquired pneumonia #Lactic acidosis, resolved #Pericardial effusion #NSTEMI likely type II #Normocytic normochromic anemia #Polysubstance abuse #Alcohol abuse #Meth use #Hx of gastritis Recommendations: Please follow-up with your PCP as soon as possible. Please follow up with card painter Dr. Simental within 1 week for pericardial effusion and heart failure. You have been started on: Furosemide 40 Mg daily Losartan 25 Mg daily Metoprolol succinate 25 Mg daily Levofloxacin 750mg daily for 11 days. -Recommended to return back to emergency department if your symptoms persist or does not improve. The case was discussed with my attending Dr. Sonia MD and my senior resident Dr. Morgan. Sin Oneill MD PGY1 Senior Resident Attestation: The patient eloped from hospital this afternoon and given the seriousness of his illness, we provided above mentioned recommendations and sent prescriptions to his pharmacy. I agree with the care plan as mentioned above. Nabor Morgan MD PGY2 Internal Medicine Time Spent with Patient Time attestation: Total time spent providing and/or coordinating discharge services: Exam Vital Signs Temp Pulse Resp BP Pulse Ox O2 Del Method O2 Flow Rate 97.2 F 76 19 145/88 H 99 Room Air 2 11/13/24 12:00 11/13/24 12:00 11/13/24 12:00 11/13/24 12:00 11/13/24 12:00 11/13/24 12:00 11/11/24 03:50 FiO2 90 11/10/24 07:35 Narrative Exam General: A/O x3, in no acute distress, disheveled Eyes: PERRL, EOMI. Anicteric, vision grossly intact. Ears: No ear pain, no ear discharge, Hearing grossly intact. Nose: No nasal discharge. Mouth/Throat: Dry mucous membranes, poor dentation, no redness, no lesions. Neck: Neck supple, non-tender, no cervical lymphadenopathy. Lungs: Clear HUGH, No accessory muscle use. Cardio: Normal S1/S2, regular rhythm, no murmurs, no JVD Abdomen: Soft, non-tender, no palpable masses, peristalsis present, no guarding or rebound. Extremities: Symmetrical, no significant deformities, no peripheral edema , non-tender, peripheral pulses presents. Skin: No rashes, no lesions, warm to touch. psoriatic lesion beneath umbilicus Neuro: No focal neurological deficits. motor and sensory intact Discharge Plan Plan Patient Disposition: HOME (Self Care) Disposition Comment: Stable at signout Care Plan Goals: Please follow-up with your PCP within 1 week of discharge. Please follow up with card painter Dr. Simental within 1 week for pericardial effusion and heart failure. You have been started on: Furosemide 40 Mg daily Losartan 25 Mg daily Metoprolol succinate 25 Mg daily Levofloxacin 750mg daily for 11 days. -Recommended to return back to emergency department if your symptoms persist or does not improve. Prescriptions/Referrals Prescriptions/Med Rec: New furosemide 40 mg Tablet 40 mg PO QDAY 30 Days Qty: 30 2RF losartan 25 mg Tablet 25 mg PO QDAY 30 Days Qty: 30 2RF metoprolol succinate 25 mg Tablet Extended Release 24 Hr 25 mg PO QDAY 30 Days Qty: 30 2RF levofloxacin 750 mg tablet 750 mg PO QDAY Qty: 11 0RF Referrals: Marcial Siegel MD [Primary Care Provider] - Patient/Caregiver Discharge Instructions Discharge Activity: activity as tolerated Other Discharge Activity Instructions:: Please follow-up with your PCP within 1 week of discharge. Please follow up with card painter Dr. Simental within 1 week for pericardial effusion and heart failure. You have been started on: Furosemide 40 Mg daily Losartan 25 Mg daily Metoprolol succinate 25 Mg daily Levofloxacin 750mg daily for 11 days. -Recommended to return back to emergency department if your symptoms persist or does not improve. Education Materials: Heart Failure: Tracking Your Weight Print Language: Irish Stand Alone Forms: [employer] Award Info., Patient Portal Info Letter Quality Discharge Quality Measures VTE prophylaxis
--- NOTE | 2024-11-13 14:18 | ESCONSULT_ITS ---
RE: NITA LEONARD : 1960 DATE OF CONSULTATION: 11/13/2024 REFERRING PHYSICIAN: Yvette Scott MD REASON FOR CONSULTATION: Prolonged respiratory difficulty with pending AFB. HISTORY OF PRESENT ILLNESS: The patient is an unfortunate 64-year-old man. He is a fair historian, but denies most of the historical findings that are noted in the record. He denies any substance use. For example, he had a positive drug screen for methamphetamine and opioids. Amphetamines are not given in the hospital for any reason, opioids may be. There are some alcohol use issues as well as some possible heart disease and heart failure. He presented with dyspnea on exertion and edema. Echocardiogram, his ejection fraction was varied 40% to 45%. This is not ideal, but it is adequate for most people. SURGICAL HISTORY: None. ALLERGIES: NONE NOTED. IMMUNIZATIONS: Last tetanus is not known. He is unsure about his flu shot every year and believes he has had 2 COVID vaccines and believes he has had pneumococcal vaccine. FAMILY HISTORY: Unremarkable. SOCIAL HISTORY: Last alcohol use was reportedly 2 years ago per pt. He had a positive drug screen as mentioned. He is positive for opioids and methamphetamines. Opioids could have been given here was hard to know. PHYSICAL EXAMINATION: Benign. The patient is alert, cooperative, and [id number]. HEENT: Benign. HEART: Benign. LUNGS: Benign. ABDOMEN: benign ASSESSMENT: Cavitary pulmonary process with upper lobe lesions, probably suggestive of tuberculosis given his prolonged history. QuantiFERON and AFBs are pending. hopefully the sputum [place] be [place] to the county and a reuest provided for a smear as well as a culture. The smear is more indicative of contagiousness, previous smear negative, he may need a bronchoscopy because of his age to rule out cancer. They can also present with cavitary pulmonary process. RECOMMENDATIONS: I will be happy to see him again on Wednesday. DT: :18 TT: 13:09:00 Ref: [id number] - TID: [id number] MTDD
== END 2024-11-13 12:48 | disposition left against medical advice (07) | DRG 720 ==
LOC: SERX 06:21 → SERHOLD 09:54 → S2NX 18:28
PROVIDERS: Emergency Medicine; Admitting Provider Internal Medicine; Emergency Provider Emergency Medicine; PCP Family Medicine; Visit Provider Internal Medicine
DX: A41.1 Sepsis due to other specified staphylococcus (principal); I11.0 Hypertensive heart disease with heart failure; I50.23 Acute on chronic systolic (congestive) heart failure; D64.9 Anemia, unspecified; E87.20 Acidosis, unspecified; I21.A1 Myocardial infarction type 2; I25.10 Atherosclerotic heart disease of native coronary artery without angina pectoris; I31.39 Other pericardial effusion (noninflammatory); I45.10 Unspecified right bundle-branch block; J18.9 Pneumonia, unspecified organism; J96.01 Acute respiratory failure with hypoxia; F10.10 Alcohol abuse, uncomplicated; F15.10 Other stimulant abuse, uncomplicated; F17.210 Nicotine dependence, cigarettes, uncomplicated; Z87.19 Personal history of other diseases of the digestive system; Z79.899 Other long term (current) drug therapy; Z53.29 Procedure and treatment not carried out because of patient's decision for other reasons
CPT/HCPCS: 36415; 36600; 71045; 80053; 80061; 80202; 80307; 81001; 82803; 83036; 83605; 83735; 83880; 84145; 84443; 84484; 85025; 85610; 85730; 87040; 87077; 87186; 87205; 87811; 92610; 93005; 93306; 94640; 94660; 96365; 96367; 96374; 96375; 96376; 99291; 99292; A9270; J0456; J0696; J1643; J1940; J2270; J2470; J2543; J2919; J3370; J3475; J7050